=== PATIENT | female | born 1965 | race Caucasian/White ===

== ENCOUNTER 2019-08-23 09:01 | Emergency (ER) | payer SELFPAY ==
[2019-08-23 09:02] VITALS: BP 161/95; PULSE 150; RESP 20; TEMP 36.6; O2SAT 98; BMI 32.3
[2019-08-23 09:12] VITALS: PULSE 145
--- NOTE | 2019-08-23 09:16 | RAD_ITS ---
STUDY: X-RAY CHEST REASON FOR EXAM: Female, 54 years old. COUGH, SHORTNESS OF BREATH, FEVER X3 DAYS. TECHNIQUE: PA and lateral views of the chest. COMPARISON: None. FINDINGS: Cardiac silhouette unremarkable. Increased bronchovascular markings. Aorta unremarkable. No focal patchy airspace opacities. No pleural effusions. Suspected tiny granulomas versus prominent vessel on end. Upper abdomen unremarkable. Osseous structures intact. No pneumothorax. RAD/Chest PA and Lateral IMPRESSION: No focal patchy airspace opacities or effusions Mild reactive airway disease/viral infection Suspected tiny granulomas versus prominent vessel on end (Todd prior imaging or 6 month follow up x-ray) Electronically Signed: Petr Lantigua DO at 10:01 EST Tel , Service support ,
--- NOTE | 2019-08-23 09:19 | ED.VISSUMM ---
- ER Visit Summary Date of Service: 08/23/19 Chief Complaint: Fever History of Present Illness: The patient is a 54 F recently moved area has no primary care physician. Past medical history of urinary incontinence for which she is out of her medications. Patient states her last 5 days she has had a subjective fever. She does not have a thermometer. She is had a nonproductive cough. She denies any abdominal pain. No vomiting. No diarrhea. No dysuria. Physical Examination: Well-appearing middle-aged female. Vital signs are stable. She does have a low-grade temperature of 100 mom in the room the nurse retook it. H EENT exam unremarkable. Moist with membranes. TMs normal. She does not appear to be septic or toxic. No signs of dehydration. Neck nontender. No lymphadenopathy. No meningismus. Lungs clear to auscultation bilaterally. Heart tachycardic no murmur. Abdomen is soft and nontender. Normal bowel sounds. No peritoneal signs. Extremities moves all 4. No edema. Nontender. No rashes or cellulitis. Back nontender. Neurologically she is awake and alert with no focal motor deficits. Test Results: Chest x-ray AP lateral 2 views shows acute abnormality read both myself and the radiologist. Urinalysis shows positive nitrates greater than 100 white cells and 4+ bacteria consistent with a UTI. A urine culture was ordered. Emergency Department Course and Treatment: Patient's exam is pretty benign. She will be worked up for possible fever with a chest x-ray and urinalysis. Repeat exam doing well at 11:25 AM. Discussed with patient test results. She was started on Keflex in the emergency department. Treatment Plan: Keflex 500 4 times daily for 7 days. Fluids and rest. Alternate Tylenol and Motrin. She was given a dose of Tylenol in the ER. She has no primary care physician should be referred to [facility]. Disposition: Discharge Impression: Fever secondary to an acute UTI This note was generated with [employer] dictation software. It may contain incorrect words, spelling, and punctuation that were not noted in review of the chart prior to signing
[2019-08-23 09:20] VITALS: PULSE 144; TEMP 38.3
[2019-08-23] MEDS: Acetaminophen 500 MG Tablet 1000 MG PO (10:01)
[2019-08-23 10:20] LABS: Mucous, Urine 0 SEEN /hpf (<or=2+)
[2019-08-23 10:23] LABS: Color, Urine Yellow (Yellow); Glucose, Dipstick Normal (Normal); Ketone-Dipstick 5 mg/dl (Negative); Leukocyte Esterase-Dipstick 500 /ul (Negative); Nitrite-Dipstick Positive (Negative); Occult Blood-Urine 250 /ul (Negative); Protein-Dipstick 500 mg/dl (Negative); Specific Gravity, Urine 1.015 (1.002-1.030); Urine Bilirubin Dipstick 1 mg/dL (Negative); Urine Clarity Cloudy (Clear); Urine Urobilinogen 1 mg/dl (Normal); Urine pH 6.5 (5.0 - 8.0)
[2019-08-23 10:29] LABS: Red Blood Cells-Urine 5-10 SEEN /hpf (0-5); Squamous Epithelial Cells - UA 0-5 SEEN /hpf (5-10)
[2019-08-23 10:30] LABS: Bacteria 4+ /hpf (None Seen)
[2019-08-23 10:31] LABS: White Blood Cells >100 SEEN /hpf (0-5)
[2019-08-23] MEDS: Cephalexin 250 MG Capsule 500 MG PO (11:31)
[2019-08-23 11:34] VITALS: TEMP 37.2
--- NOTE | 2019-08-23 11:41 | ED.DEP ---
ED Disposition - Plan for ED Patient: Disposition: Home or Assisted Living Instructions: Urinary Tract Infections in Women Prescriptions: Cephalexin [Keflex] 500 mg PO Q6 #30 cap Prescription Printed Referrals: Robert Ricks MD [STAFF PHYSICIAN] - 3-5 Days Additional Instructions: Have a urinary tract infection. Plenty of fluids and rest. Alternate Tylenol Motrin for fever. Keflex 1 pill 4 times a day for 1 week. Follow-up if not improving or return if feeling worse.
== END 2019-08-23 11:58 | disposition home or self-care (01) ==
PROVIDERS: Emergency Provider Emergency Medicine
DX: N39.0 Urinary tract infection, site not specified (principal); R05 Cough; Z87.891 Personal history of nicotine dependence
CPT/HCPCS: 71046; 81001; 87077; 87086; 87088; 87186; 99283

== ENCOUNTER → 2023-01-29 | Outpatient (CLI) | payer OTHER, SELFPAY ==
--- NOTE | 2023-01-29 12:49 | BI_ITS ---
MAMMOGRAPHY - BILATERAL SCREENING REASON FOR EXAM: Female, 57 years old. Routine annual screening examination. PERTINENT HISTORY: Non-contributory. TECHNIQUE: Digital bilateral breast ervin (3D mammographic acquisition) in the CC and MLO projections. 2-D mediolateral oblique (MLO) and craniocaudad (CC) views of both breasts were obtained. CAD: Full Field Digital Mammography with Computer Added Detection was performed. COMPARISON: None. Baseline examination. FINDINGS: Breast Composition: There are scattered areas of fibroglandular density. There are no dominant masses or suspicious calcifications. Small benign-appearing bilateral axillary lymph nodes. There is a 4 mm well-defined nodule with a central fatty notch in the slightly upper lateral aspect of the right breast suggestive of an intramammary lymph node No other significant abnormalities are identified. BI/SCRN MAMM (CAD)W/ERVIN BILAT IMPRESSION: Negative screening mammogram. Yearly followup mammogram recommended. (A) ASSESSMENT CATEGORY: BIRADS Category 2: Benign. A letter regarding these results will be sent to the patient by the facility within 30 days. Approximately 10% of breast cancers are not detected by mammography. A normal mammogram should not delay biopsy of a clinically suspicious abnormality. [id number] Electronically Signed: Shun Hunt MD at 14:12 EDT ,
== END | disposition home or self-care (01) ==
LOC: OPBI 12:47
PROVIDERS: PCP Family Medicine; Referring Provider Family Medicine; Visit Provider Family Medicine
DX: Z12.31 Encounter for screening mammogram for malignant neoplasm of breast (principal)
CPT/HCPCS: 77063; 77067

== ENCOUNTER → 2023-02-04 | Outpatient (CLI) | payer OTHER, SELFPAY ==
--- NOTE | 2023-02-04 18:18 | CT_ITS ---
ACR Level 3 findings have been noted. An addendum which confirms receipt of the report will follow. STUDY: LOW DOSE CT LUNG CANCER SCREENING REASON FOR EXAM: Female, 57 years old. history of tobacco use. One pack per day x40 years RADIATION DOSAGE (If Supplied By Facility): CTDIvol = ( 3.02 ) mGy, DLP = ( 105.71 ) mGycm TECHNIQUE: No contrast was administered. Low dose technique was utilized (average mAS-38 and kVp 120). 1.25 mm axial source images with a slice interval of 1.25-mm were reconstructed in lung windows with coronal and sagittal reformats COMPARISON: Chest radiograph August 23, 2019. NODULES: No suspicious pulmonary nodules. Endobronchial lesion: Abrupt occlusion of the left lower lobe bronchus axial image 118 with complete atelectasis of the left lower lobe. Numerous embedded calcified granulomas in the collapsed left lower lobe. Parenchyma: Superior segment right lower lobe 1.2 cm calcified granuloma. Minimal bilateral peripheral scarring. Additional scattered punctate calcified granulomas throughout the remainder of the lungs. No other consolidation. No effusion. No pneumothorax. Aorta: Mild abdominal aortic atherosclerosis. No aortic ectasia CORONARY ARTERIES: mild circumflex and right coronary calcified atherosclerosis. Heart: No cardiomegaly or pericardial effusion. Pulmonary artery: No main pulmonary arterial enlargement. Mediastinal nodes: No mediastinal or bulky hilar adenopathy. Other chest and abdominal findings: Unremarkable thyroid. Unremarkable esophagus. Normal adrenals. No acute upper abdominal finding. CT/Low Dose CT Lung Screening IMPRESSION: Abrupt occlusion of the left lower lobe bronchus with complete left lower lobe atelectasis. This is of unknown chronicity and without evidence of surrounding bulky mass or other endobronchial lesion. Finding could represent aspiration. Underlying neoplastic process is not excluded. Pulmonary referrals recommended for consideration of bronchoscopy. Scattered diffuse calcified granulomas compatible with prior granulomatous disease. No suspicious pulmonary nodules in the aerated lung. Left lower lobe cannot be evaluated due to complete collapse. Lung-RADS category 0 - Additional lung cancer screening CT images and/or comparison to prior chest CT examination is needed. RECOMMENDATION: 1. Pulmonary referral consideration of bronchoscopy as above. 2. Repeat CT chest after resolution of atelectasis to complete evaluation of the left lower lobe. IMPORTANT NOTES FOR USE: ACR Lung-RADS Version 1.1 Assessment Categories Release Date: 2018 Category: Coded 0-4 bases on nodule(s) with highest degree of suspicion. Negative screen is defined as categories 1 and 2; a positive screen is defined as categories 3 and 4. Category 3 and 4A nodules that are unchanged on interval CT should be coded as category 2, and individuals returned to screening in 12 months. Category 4X: Category 3 or 4 nodules with additional imaging findings that increase the suspicion of lung cancer, such as spiculation, GGN that doubles in size in 1 year, enlarged lymph notes, etc. Category Modifiers: S (significant finding unrelated to lung cancer) Electronically Signed: Juan Alberto Cartagena MD at 9:28 EDT ,
== END | disposition home or self-care (01) ==
LOC: CT 17:18
PROVIDERS: PCP Family Medicine; Referring Provider Family Medicine; Visit Provider Family Medicine
DX: Z87.891 Personal history of nicotine dependence (principal)
CPT/HCPCS: 71271

== ENCOUNTER → 2023-03-03 | Outpatient (CLI) | payer OTHER, SELFPAY ==
--- NOTE | 2023-03-03 16:10 | RAD_ITS ---
INDICATION: Atelectasis EXAMINATION/TECHNIQUE: X-RAY - XR Chest 2 Views COMPARISON: FINDINGS: LINES/DEVICES: None. LUNGS: No consolidation, edema or effusion. No pneumothorax. MEDIASTINUM AND CARDIOVASCULAR STRUCTURES: Cardiac silhouette not enlarged. Central airways and mediastinal contour are unremarkable. BONES AND SOFT TISSUES: Old healed right fourth and fifth rib fractures. RAD/Chest PA and Lateral IMPRESSION: Old healed right fourth and fifth rib fractures. Electronically Signed: Kvng Howell MD at 23:29 EDT ,
== END | disposition home or self-care (01) ==
LOC: MTRAD 16:08
PROVIDERS: PCP Family Medicine; Referring Provider Internal Medicine Pulmonary Disease; Visit Provider Internal Medicine Pulmonary Disease
DX: J98.11 Atelectasis (principal)
CPT/HCPCS: 71046

== ENCOUNTER → 2023-06-17 | Outpatient (CLI) | payer OTHER, SELFPAY | END | disposition home or self-care (01) | PROVIDERS: PCP Family Medicine; Referring Provider Family Medicine; Visit Provider Family Medicine | DX: N39.0 Urinary tract infection, site not specified (principal) | CPT/HCPCS: 87077; 87086; 87088; 87186 ==

== ENCOUNTER → 2023-07-16 | Outpatient (CLI) | payer SELFPAY ==
[2023-07-16 09:27] LABS: Mucous, Urine 0 SEEN /hpf (<or=2+)
[2023-07-16 12:18] LABS: Color, Urine Yellow (Yellow); Glucose, Dipstick Normal (Normal); Ketone-Dipstick 5 mg/dl (Negative); Leukocyte Esterase-Dipstick 500 /ul (Negative); Nitrite-Dipstick Positive (Negative); Occult Blood-Urine 150 /ul (Negative); Protein-Dipstick 100 mg/dl (Negative); Urine Bilirubin Dipstick 1 mg/dL (Negative); Urine Clarity Cloudy (Clear); Urine Urobilinogen 1 mg/dl (Normal)
[2023-07-16 12:19] LABS: Absolute Lymphocyte Count 2.07 X10^3/uL (0.83-4.51); Absolute Neutrophil Count 5.9 X10^3/uL (2.0-7.7); Basophil# 0.08 X10^3/uL; Basophil% 0.9 % (0-1); Eosinophil# 0.18 X10^3/uL; Hemoglobin 15.9 g/dL (12.0-15.0); Lymphocyte # 2.07 X10^3/ul (0.83-4.51); Lymphocyte % 23.3 % (19-41); Mean Corp Hgb Conc 31.8 g/dL (32-36); Mean Corpuscular Hgb 31.5 pg (27.0-32.0); Mean Platelet Vol. 11.3 fl (6.2-12.0); Monocyte# 0.68 X10^3/uL; Monocyte% 7.6 % (0-10); NRBC Flagged by Analyzer 0 % (0-5); Neutrophil # 5.85 X10^3/uL (2.7-7.7); Neutrophil % 65.9 % (47-70); Platelet Count 387 K/mm3 (150-450); RBC Distribution Width CV 13.9 % (11.6-14.6); RBC Distribution Width SD 50.5 fl (35.1-43.9); Red Blood Count 5.05 M/mm3 (4.2-5.4); White Blood Count 8.9 K/mm3 (4.4-11.0)
[2023-07-16 12:31] LABS: Bacteria 3+ /hpf (None Seen); Red Blood Cells-Urine 10-25 SEEN /hpf (0-5); Squamous Epithelial Cells - UA 0-5 SEEN /hpf (5-10); White Blood Cells 25-50 SEEN /hpf (0-5)
[2023-07-16 12:45] LABS: Cholesterol 220 mg/dL (200); High Density Lipoprotein 100 mg/dL; Magnesium 2.2 mg/dL (1.6-2.6); Thyroid Stim Hormone (TSH) 1.97 uIU/mL (0.358-3.74); Triglycerides 84 mg/dL; Very Low Density Lipoprotein 17 mg/dL (5-40)
== END | disposition home or self-care (01) ==
LOC: MFPLAB 09:26
PROVIDERS: PCP Family Medicine; Visit Provider Family Medicine
DX: R03.0 Elevated blood-pressure reading, without diagnosis of hypertension (principal); R00.0 Tachycardia, unspecified
CPT/HCPCS: 36415; 80061; 81001; 83735; 84443; 85025

== ENCOUNTER → 2024-02-09 | Outpatient (CLI) | payer SELFPAY | END | disposition home or self-care (01) | PROVIDERS: PCP Family Medicine; Visit Provider Family Medicine | DX: Z12.4 Encounter for screening for malignant neoplasm of cervix (principal) | CPT/HCPCS: 88175; G0145 ==

== ENCOUNTER → 2024-02-25 | Outpatient (CLI) | payer OTHER, SELFPAY ==
--- NOTE | 2024-02-25 12:54 | US_ITS ---
HISTORY: Hypertrophy of uterus. TECHNIQUE: Transabdominal and transvaginal pelvic ultrasound was performed with ge scale and color Doppler evaluation. 76 images. COMPARISON: None. FINDINGS: UTERUS: 4.8 x 1.8 x 3.4 cm. Anteverted. Heterogeneous echotexture. ENDOMETRIAL THICKNESS: 2 mm, not thickened. RIGHT OVARY: 0.9 x 1.1 x 1.6 cm with a 7 mm dominant follicle. No adnexal masses. LEFT OVARY: Not well-visualized due to suboptimal bladder distention. FREE FLUID: None. URINARY BLADDER: Partially distended at 61 cc. US/Pelvic w/ Transvaginal IMPRESSION: Heterogeneous uterus, raising the possibility of leiomyoma. Electronically Signed: Ivette Hand MD at 13:15 EDT ,
== END | disposition home or self-care (01) ==
LOC: US 12:52
PROVIDERS: PCP Family Medicine; Referring Provider Family Medicine; Visit Provider Family Medicine
DX: N85.2 Hypertrophy of uterus (principal)
CPT/HCPCS: 76830; 76856

== ENCOUNTER → 2024-04-10 | Outpatient (CLI) | payer OTHER, SELFPAY ==
--- NOTE | 2024-04-10 18:37 | CT_ITS ---
STUDY: LOW DOSE CT LUNG CANCER SCREENING REASON FOR EXAM: Female, 58 years old. Smoker RADIATION DOSAGE (If Supplied By Facility): CTDIvol = ( 3.18 ) mGy, DLP = ( 109.20 ) mGycm TECHNIQUE: No contrast was administered. Low dose technique was utilized (average mAS-38 and kVp 120). 1.25 mm axial source images with a slice interval of 1.25-mm were reconstructed in lung windows. 2.5 mm axial source images with a slice interval of 2.5-mm were reconstructed in lung windows. 5.0 mm axial source images with a slice interval of 5.0-mm were reconstructed in soft tissue windows. COMPARISON: Comparison is made with prior study dated February 04, 2023. NODULES: Stable calcified granuloma in the superior segment of the right lower lobe. Emphysema: Mild emphysematous changes. Endobronchial lesion: None Aorta: Mild atherosclerotic calcification. CORONARY ARTERIES: Coronary artery calcification is seen. Heart: Unremarkable Pulmonary artery: Unremarkable Mediastinal nodes: Unremarkable Other chest and abdominal findings: The previously seen left lower lobe atelectasis is not seen at this time. CT/Low Dose CT Lung Screening IMPRESSION: IMPORTANT NOTES FOR USE: ACR Lung-RADS Version 1.1 Assessment Categories Release Date: 2018 Category: Coded 0-4 bases on nodule(s) with highest degree of suspicion. Negative screen is defined as categories 1 and 2; a positive screen is defined as categories 3 and 4. Category 3 and 4A nodules that are unchanged on interval CT should be coded as category 2, and individuals returned to screening in 12 months. Category 4X: Category 3 or 4 nodules with additional imaging findings that increase the suspicion of lung cancer, such as spiculation, GGN that doubles in size in 1 year, enlarged lymph notes, etc. Category Modifiers: S (significant finding unrelated to lung cancer) Electronically Signed: Shun Hunt MD at 15:27 EDT ,
== END | disposition home or self-care (01) ==
PROVIDERS: PCP Family Medicine; Referring Provider Family Medicine; Visit Provider Family Medicine
DX: Z12.2 Encounter for screening for malignant neoplasm of respiratory organs (principal); F17.201 Nicotine dependence, unspecified, in remission
CPT/HCPCS: 71271

== ENCOUNTER → 2024-12-20 | Outpatient (CLI) | payer OTHER, SELFPAY ==
--- NOTE | 2024-12-20 16:53 | RAD_ITS ---
PROCEDURE: LUMBAR SPINE 2 OR 3 VIEWS 12/20/2024 REASON FOR EXAM: FACET ARTHROPATHY TECHNIQUE: Standing three-view lumbar spine series was performed. FINDINGS: There are no compression fractures. There is maintenance of the normal lumbar lordosis. There is mild rotary scoliosis of the lumbar spine convex right centered at the L2-3 level. There is degenerative disc disease L3-4 and L4-5 with narrowing of the disc spaces. There is multilevel facet arthropathy. There is no spondylolisthesis. The SI joints are normal. There is calcific vascular disease of the abdominal aorta. RAD/Lumbar Spine 2 or 3 Views IMPRESSION: Mild multilevel degenerative disc disease and rotary scoliosis convex right. Reading Location: [id number]
[2024-12-20 18:02] LABS: Absolute Neutrophil Count 4.1 X10^3/uL (2.0-7.7); Basophil# 0.08 X10^3/uL; Eosinophil# 0.34 X10^3/uL; Eosinophils% 4.5 % (0-5); Hematocrit 42.6 % (37-47); Hemoglobin 13.8 g/dL (12.0-15.0); Lymphocyte % 32.7 % (19-41); Mean Corp Hgb Conc 32.4 g/dL (32-36); Mean Corpuscular Hgb 31.7 pg (27.0-32.0); Mean Corpuscular Volume 97.9 fL (81-99); Mean Platelet Vol. 11.1 fl (6.2-12.0); Monocyte# 0.65 X10^3/uL; Monocyte% 8.5 % (0-10); NRBC Flagged by Analyzer 0 % (0-5); Neutrophil # 4.06 X10^3/uL (2.7-7.7); Neutrophil % 53.2 % (47-70); Platelet Count 391 K/mm3 (150-450); RBC Distribution Width CV 13.7 % (11.6-14.6); Red Blood Count 4.35 M/mm3 (4.2-5.4); White Blood Count 7.6 K/mm3 (4.4-11.0)
[2024-12-20 18:10] LABS: Color, Urine Yellow (Yellow); Glucose, Dipstick Normal (Normal); Ketone-Dipstick Negative (Negative); Leukocyte Esterase-Dipstick 25 /ul (Negative); Nitrite-Dipstick Negative (Negative); Occult Blood-Urine 10 /ul (Negative); Protein-Dipstick 15 mg/dl (Negative); Specific Gravity, Urine 1.025 (1.002-1.030); Urine Bilirubin Dipstick Negative (Negative); Urine Clarity Clear (Clear); Urine Urobilinogen Normal (Normal)
[2024-12-20 18:31] LABS: ALB/GLOB Ratio 1.2 RATIO (0.9-2.4); AST(SGOT) 17 U/L (<=31); Alanine Aminotransfer ALT/SGPT 16 U/L (<=34); Albumin, Serum 3.8 g/dL (3.5-5.0); Alkaline Phosphatase 74 U/L (35-104); Anion Gap 12 (5-15); BUN 22 mg/dL (4-19); BUN/Creat Ratio 20.8 RATIO (10-20); Calcium,Total 9.5 mg/dL (7.6-11.0); Carbon Dioxide 26.3 mmol/L (21.0-32.0); Chloride 103 mmol/L (98-108); Cholesterol 200 mg/dL (<=200); Creatinine, Serum 1.07 mg/dL (0.70-1.20); EST Glomerular Filtration Rate 60 (>60); Globulin 3.1 g/dL (2.2-4.2); Glucose 100 mg/dL (70-99); High Density Lipoprotein 92 mg/dL; Low Density Lipoprotein Calc. 86 mg/dL; Potassium 3.9 mmol/L (3.3-5.1); Protein, Total 6.9 g/dL (5.9-8.4); Sodium Level 141 mmol/L (133-145); Total Bilirubin 0.22 mg/dL (0.00-1.30); Triglycerides 112 mg/dL; Very Low Density Lipoprotein 22 mg/dL (5-40); cholesterol:hdl ratio screen 2.17
--- OUTSIDE RECORDS SUMMARY | 2024-12-20 22:07 | XMS RPT_ITS | CCD ---
Author Organization [facility] Care Team Providers Care Necktie Centralizing Machine Operator Name Role Phone Himanshu Schmitzwn [facility] Physicians Primary Care Pro vider MICHAEL PALOMINO Attending Unavailable JOSSIE BRAR Referring Unavailable MICHAEL PALOMINO Attending Unavailable MICHAEL PALOMINO Admitting Unavailable MICHAEL PALOMINO Attending Unavailable Ted Gore Referring Unavailable Ted Gore Primary Care Unavailable Ted Gore Attending Unavailable Ted Gore Primary Care Unavailable Ted Gore Attending Unavailable Ted Gore Referring Unavailable Ted Gore Referring Unavailable Ted Gore Primary Care Unavailable Ted Gore Attending Unavailable Ted Gore Primary Care Unavailable Ted Gore Attending Unavailable Ted Gore Primary Care Unavailable Ted Gore Attending Unavailable Allergies Allergy Classification Reported Allergen(s) Allergy Type Date of Onset Reaction(s) Facility (5 sources) bee venom protein (honey bee) Allergy to substance 08-23-2019 [facility] (1 source) bee venom protein (honey bee) Drug allergy (disorder) 08-23-2019 [facility] Repository Medications Current Medications Medication Drug Class(es) Dates Sig (Normalized) Sig (Original) acetaminophen 325 mg / oxyCODONE hydrochloride 5 mg oral tablet (1 source) Opioid Agonist Start: 04-19-2023 End: 04-26-2023 take 1 tablet by mouth every six hours as needed for pain oxyCODONE-acetamin ophen (Percocet) 5-325 MG tablet Indications: Postoperative pain Take 1 tablet by mouth every 6 hours as needed for severe pain (7-10) for up to 7 days. 28 tablet 0 04/19/2023 04/26/2023 Active cephalexin 500 mg oral capsule (4 sources) Cephalosporin Antibacterial Start: 08-23-2019 take 500 mg by mouth every six hours Cephalexin Active 500 MG PO EVERY 6 HOURS August 23, 2019 12:00am docusate sodium 100 mg oral capsule (1 source) Start: 04-19-2023 End: 04-26-2023 take 1 capsule by mouth twice daily as needed for constipation docusate sodium (Colace) 100 MG capsule Take 1 capsule (100 mg) by mouth 2 times daily as needed for constipation for up to 7 days. 14 capsule 0 04/19/2023 04/26/2023 Active 60 actuat fluticasone propionate 0.232 mg/actuat / salmeterol xinafoate 0.014 mg/actuat dry powder inhaler (4 sources) Corticosteroid, beta2-Adrenergic Agonist Start: 04-01-2023 fluticasone-salmet clinton (AirDuo RespiClick) 232-14 MCG/ACT inhaler ibuprofen 600 mg oral tablet (5 sources) Nonsteroidal Anti-inflammatory Drug Start: 04-19-2023 End: 04-26-2023 take 1 tablet by mouth every six hours as needed for pain and pain ibuprofen 600 MG tablet Take 1 tablet (600 mg) by mouth every 6 hours as needed for mild pain (1-3) or moderate pain (4-6) for up to 7 days. 28 tablet 0 04/19/2023 04/26/2023 Active Start: 03-29-2023 ibuprofen 800 MG tablet 24 hr oxybutynin chloride 15 mg extended release oral tablet (4 sources) Cholinergic Muscarinic Antagonist Start: 11-25-2022 take 1 tablet by mouth once daily oxybutynin XL (Ditropan-XL) 15 MG 24 hr tablet Take 15 mg by mouth daily. 0 11/25/2022 Active sulfamethoxazole 800 mg / trimethoprim 160 mg oral tablet (1 source) Dihydrofolate Reductase Inhibitor Antibacterial, Sulfonamide Antimicrobial Start: 04-19-2023 End: 04-22-2023 take 1 tablet by mouth twice daily sulfamethoxazole-t rimethoprim (Bactrim DS) 800-160 MG tablet Indications: Cystitis Take 1 tablet by mouth 2 times daily for 3 days. 6 tablet 0 04/19/2023 04/22/2023 Active traMADol hydrochloride 50 mg oral tablet (4 sources) Opioid Agonist Start: 03-31-2023 traMADol (Ultram) 50 MG tablet varenicline 1 mg oral tablet (4 sources) Partial Cholinergic Nicotinic Agonist Start: 04-04-2023 take 1 tablet by mouth twice daily varenicline (Chantix) 1 MG tablet TAKE 1 TABLET BY MOUTH TWICE DAILY starting after completing dose .5mg pack 0 04/04/2023 Active Completed/Discontinued Medications Medication Drug Class(es) Dates Sig (Normalized) Sig (Original) acetaminophen 500 mg oral tablet (1 source) Start: 04-19-2023 End: 04-19-2023 acetaminophen (Tylenol) tablet 1,000 mg ALPRAZolam 0.25 mg disintegrating oral tablet (1 source) Benzodiazepine Start: 04-19-2023 End: 04-19-2023 ALPRAZolam (Xanax) disintegrating tablet 0.25 mg calcium chloride 0.0014 meq/ml / potassium chloride 0.004 meq/ml / sodium chloride 0.103 meq/ml / sodium lactate 0.028 meq/ml injectable solution (1 source) Start: 04-19-2023 End: 04-19-2023 lactated Ringer's infusion famotidine 20 mg oral tablet (1 source) Histamine-2 Receptor Antagonist Start: 04-19-2023 End: 04-19-2023 famotidine (Pepcid) tablet 20 mg gabapentin 100 mg oral capsule (1 source) Anti-epileptic Agent Start: 04-19-2023 End: 04-19-2023 gabapentin (Neurontin) capsule 100 mg 5 ml sodium chloride 9 mg/ml injection (3 sources) Start: 04-19-2023 End: 04-19-2023 sodium chloride 0.9% (NS) flush 10 mL Problems Active Problems Problem Classification Problem Date Documented Date Episodic/Chronic Genitourinary symptoms and ill-defined conditions (7 sources) Genuine stress incontinence; Translations: [Stress incontinence (female) (male)] Onset: 04-15-2023 04-15-2023 Chronic Other aftercare (1 source) Surgical follow-up; Translations: [Encounter for follow-up examination after completed treatment for conditions other than malignant neoplasm] 06-01-2023 Episodic Other diseases of bladder and urethra (2 sources) Overactive bladder; Translations: [Overactive bladder] Onset: 04-15-2023 04-15-2023 Chronic Other diseases of bladder and urethra (1 source) Overactive bladder; Translations: [Overactive bladder] Onset: 04-15-2023 Chronic Other female genital disorders (1 source) Hypertrophy of uterus; Translations: [Hypertrophy of uterus] Onset: 03-23-2024 Episodic Other nervous system disorders (1 source) Postoperative pain ; Translations: [Other acute postprocedural pain] 04-19-2023 Episodic Other screening for suspected conditions (not mental disorders or infectious disease) (2 sources) Encounter for screening for malignant neoplasm of respiratory organs; Translations: [Encounter for screening for malignant neoplasm of cervix] Onset: 04-14-2024 Episodic Prolapse of female genital organs (3 sources) Midline cystocele; Translations: [Cystocele, midline] Onset: 04-15-2023 04-15-2023 Chronic Past or Other Problems Problem Classification Problem Date Documented Date Episodic/Chronic Other aftercare (2 sources) Encounter for follow-up examination after completed treatment for conditions other than malignant neoplasm; Translations: [Encounter for follow-up examination after completed treatment for conditions other than malignant neoplasm] Onset: 06-01-2023 Episodic Other circulatory disease (1 source) Elevated blood-pressure reading, without diagnosis of hypertension; Translations: [Elevated blood-pressure reading, without diagnosis of hypertension] Onset: 08-09-2023 Episodic Other nervous system disorders (2 sources) Other acute postprocedural pain; Translations: [Other acute postprocedural pain] Onset: 04-19-2023 Episodic Urinary tract infections (1 source) Urinary tract infection, site not specified; Translations: [Urinary tract infection, site not specified] Onset: 06-22-2023 Episodic Results Test Name Value Interpretation Reference Range Facility Low Dose CT Lung Screeningon 04-10-[address] Lung Screening [facility] [address] [place] [address] Lung Screening MR#: [id number] Acct: [id number] Name: HARIS MCCURDY Rep #: [id number] : 1965 F 58 From: Shun mcqueen MD PCP: Dr. Ted Gore MD Status: [facility] Study: Low Dose CT Lung Screening Date of Exam: 04/10 Exam# [id number] Ordering Dr: Ted Gore MD ADDENDUM by Dr. Shun Hunt MD on 04/13/24 at 0800 ADDENDUM [id number] This is an addendum report for voice recognition error. Category 3: Twelve-month follow-up recommended. Electronically Signed: Shun Hunt MD at 8:00 EDT , 04/13/24 0800 Date cc: Dr. Ted Gore MD * Signed ADDENDUM by Dr. Shun Hunt MD on 04/13/[address]/Low Dose CT Lung Screening IMPRESSION: undefined 04/13/24 0807 Date cc: Dr. Ted Gore MD * Signed [id number] STUDY: LOW DOSE CT LUNG CANCER SCREENING REASON FOR EXAM: Female, 58 years old. Smoker RADIATION DOSAGE (If Supplied By Facility): CTDIvol = ( 3.18 ) mGy, DLP = ( 109.20 ) mGycm TECHNIQUE: No contrast was administered. Low dose technique was utilized (average mAS-38 and kVp 120). 1.25 mm axial source images with a slice interval of 1.25-mm were reconstructed in lung windows. 2.5 mm axial source images with a slice interval of 2.5-mm were reconstructed in lung windows. 5.0 mm axial source images with a slice interval of 5.0-mm were reconstructed in soft tissue windows. COMPARISON: Comparison is made with prior study dated February 04, 2023. NODULES: Stable calcified granuloma in the superior segment of the right lower lobe. Emphysema: Mild emphysematous changes. Endobronchial lesion: None Aorta: Mild atherosclerotic calcification. CORONARY ARTERIES: Coronary artery calcification is seen. Heart: Unremarkable Pulmonary artery: Unremarkable Mediastinal nodes: Unremarkable Other chest and abdominal findings: The previously seen left lower lobe atelectasis is not seen at this time. CT/Low Dose CT Lung Screening IMPRESSION: IMPORTANT NOTES FOR USE: ACR Lung-RADS Version 1.1 Assessment Categories Release Date: 2018 Category: Coded 0-4 bases on nodule(s) with highest degree of suspicion. Negative screen is defined as categories 1 and 2; a positive screen is defined as categories 3 and 4. Category 3 and 4A nodules that are unchanged on interval CT should be coded as category 2, and individuals returned to screening in 12 months. Category 4X: Category 3 or 4 nodules with additional imaging findings that increase the suspicion of lung cancer, such as spiculation, GGN that doubles in size in 1 year, enlarged lymph notes, etc. Category Modifiers: S (significant finding unrelated to lung cancer) Electronically Signed: Shun Hunt MD at 15:27 EDT Reading Location ID and State: [facility] / [place] , Service support , CC: Dr. Ted Gore MD Rural Mail Contractor: Signed Normal [facility] Pelvic w/ Transvaginalon Pelvic w/ Transvaginal [facility] [address] [place], [place] [id number] Pelvic w/ Transvaginal MR#: [id number] Acct: [id number] Name: HARIS MCCURDY Rep #: [id number] : 1965 F 58 From: Ivette bragg MD PCP: Dr. Ted Gore MD Status: [facility] Study: Pelvic w/ Transvaginal Date of Exam: 02/25/24 Exam# [id number] Ordering Dr: Ted Gore MD [id number] HISTORY: Hypertrophy of uterus. TECHNIQUE: Transabdominal and transvaginal pelvic ultrasound was performed with ge scale and color Doppler evaluation. 76 images. COMPARISON: None. FINDINGS: UTERUS: 4.8 x 1.8 x 3.4 cm. Anteverted. Heterogeneous echotexture. ENDOMETRIAL THICKNESS: 2 mm, not thickened. RIGHT OVARY: 0.9 x 1.1 x 1.6 cm with a 7 mm dominant follicle. No adnexal masses. LEFT OVARY: Not well-visualized due to suboptimal bladder distention. FREE FLUID: None. URINARY BLADDER: Partially distended at 61 cc. US/Pelvic w/ Transvaginal IMPRESSION: Heterogeneous uterus, raising the possibility of leiomyoma. Electronically Signed: Ivette Hand MD at 13:15 EDT Reading Location ID and State: [facility] / [place] , Service support , CC: Dr. Ted Gore MD Rural Mail Contractor: Signed [facility] LAB TEST Normal [facility] Comment on above: Order Comment: #[id number] PAP Result Comment: TEST RESULTS LIMITS IGP Aptima HPV CtNg Age Gdln Interpretation: NEGATIVE FOR INTRAEPITHELIAL LESION AND MALIGNANCY Specimen Adequacy: Satisfactory for evaluation. Endocervical and/or squamous metaplastic cells (endocervical component) are present. Comments: The pap smear is a screening test designated to aid in the detection of pre-malignant and malignant conditions of the uterine cervix. It is not a diagnostic procedure and should not be used as the sole means of detecting cervical cancer. Both false-positive and false-negative reports do occur. Performed by Alen Agustin Hand Roller Engraver (ASCP) This nucleic acid amplification test detects fourteen high-risk HPV types (16,18,31,33,35,39,45,51,52,56,58,59,66,68) without differentiation. Age Gdln ACOG Testing 30-65 TESTING PERFORMED AT [facility]. ORIGINAL REPORT ON FILE IN LAB CONTAINS ADDITIONAL TEST SITE INFORMATION. Performed By: #### L 801.1541, L7400.0377 #### [facility] [address] [place], [place], [address] PAP IG HPV HR APTIMAon 02-10 DIAG [facility] Comment on above: Order Comment: CYTOL OGY INFORMATION: - CLINICAL INFORMATION: ANNUAL - Non - DATE LMP/MENOPAUSE: N/A - COLLECTION VIAL: Thin Prep Vial - DIGITAL COURT REPORTER SOURCE: ENDOCERVICAL - COLLECTION TECHNIQUE: BRUSH/SPATULA Result Comment: TOVA Pacheco ORDER Performed By: #### L 801.1541, [id number] #### [facility] [address] [place], [place], [address] HPV REFLEXED? Normal [facility] Comment on above: Order Comment: CYTOL OGY INFORMATION: - CLINICAL INFORMATION: ANNUAL - Non - DATE LMP/MENOPAUSE: N/A - COLLECTION VIAL: Thin Prep Vial - DIGITAL COURT REPORTER SOURCE: ENDOCERVICAL - COLLECTION TECHNIQUE: BRUSH/SPATULA Result Comment: TOVA Pacheco ORDER Performed By: #### L 801.1541, [id number] #### [facility] [address] [place], [address] 36on 09-22-2023 36 See TE sent to patient. Cancelled appointment for 10/07/2023. Requested patient call back to advise if she wants to reschedule and give new insurance information. [facility] 36on 09-21-2023 36 Sent my chart message to attempt to get ahold of patient again. Please let me know what patient says if she calls or responds to my chart message [facility] 36on 09-20-2023 36 Called provider services number on back of patients insurance card we have on file to do Botox Auth. #:[phone] Spoke with: Marilee Hunt patients insurance is not longer active and was termed/lapsed on 05/2023. I called patient, no answer. Left message stating information was told regarding insurance. Asked patient if she had gotten a new insurance since that time. Advised patient cannot do a prior auth without insurance. Advised a call back from patient with this information. Normal [facility] Absolute lymphocyte countOrd ered By: Ted Gore on 07-16-2023 Lymphocytes Auto (Unsp spec) [#/Vol] 2.07 10*3/uL 0.83-4.51 [facility] Basophil percentageOrdered B y: Ted Gore on 07-16-2023 Basophil percentage 25-50 SEEN /hpf 0-5 [facility] Basophils/100 WBC (Bld) 0.9 % 0-1 [facility] Cholesterol [Mass/Vol] 220 mg/dL <[address] [facility] Comment on above: <200 mg/dL Desirable 200-240 mg/dL Borderline >240 mg/dL High Risk Eosinophils/100 WBC (Bld) 2.0 % 0-5 [facility] Neutrophils (Bld) [#/Vol] 5.9 10*3/uL 2.0-7.7 [facility] Neutrophils/100 WBC (Bld) 65.9 % 47-70 [facility] Triglyceride [Mass/Vol] 84 mg/dL <199 [facility] Comment on above: The drugs N-Acetylcy steine and Metamizole may falsely depress this assay.Serum Triglycerides Reference Interval Normal <150 mg/dL Borderline high 150 - 199 mg/dL High 200 - 499 mg/dL Very High > or = 500 mg/dL WBC (Bld) [#/Vol] 8.9 10*3/uL 4.4-11.0 [facility] Bilirubin Test strip Ql (U)O rdered By: Ted Gore on 07-16-2023 Bilirubin Ql (U) 1 mg/dL Negative [facility] Comment on above: COLOR OF URINE MAY A FFECT DIPSTICK RESULTS. Blood erythrocytes count (nu mber/volume)Ordered By: Ted Gore on 07-16-2023 RBC (Bld) [#/Vol] 5.05 10*6/uL 4.2-5.4 [facility] Blood hemoglobin measurement (mass/volume)Ordered By: Ted Gore on 07-16-2023 Hemoglobin (Bld) [Mass/Vol] 15.9 g/dL 12.0-15.0 [facility] Blood lymphocytes/100 leukoc ytesOrdered By: Ted Gore on 07-16-2023 Lymphocytes/100 WBC (Bld) 23.3 % 19-41 [facility] Blood monocytes/100 leukocyt esOrdered By: Ted Gore on 07-16-2023 Monocytes/100 WBC (Bld) 7.6 % 0-10 [facility] Blood platelet mean volumeOr dered By: Ted Gore on 07-16-2023 Platelet mean volume (Bld) [Entitic vol] 11.3 fL 6.2-12.0 [facility] CBC W/Diff, Automatedon 06-19 Absolute Lymph 2.07 X10 3/uL Normal 0.83-4.51 [facility] Comment on above: Order Comment: Order Date: 07/16/23 Order Info: 0184-1 - CBCD Performed By: #### L 500.4100, L501.5200, L501.9520, L100.0100 #### [facility] [address] [place], [address] Absolute Neut 5.9 X10 3/uL Normal 2.0-7.7 [facility] Comment on above: Order Comment: Order Date: 07/16/23 Order Info: 0184-1 - CBCD Performed By: #### L 500.4100, L501.5200, L501.9520, L100.0100 #### [facility] [address] [place], [address] Basophils/100 WBC (Bld) 0.9 % Normal 0-1 [facility] Comment on above: Order Comment: Order Date: 07/16/23 Order Info: 0184-1 - CBCD Performed By: #### L 500.4100, L501.5200, L501.9520, L100.0100 #### [facility] [address] [place], [address] Eosinophils/100 WBC (Bld) 2.0 % Normal 0-5 [facility] Comment on above: Order Comment: Order Date: 07/16/23 Order Info: 0184-1 - CBCD Performed By: #### L 500.4100, L501.5200, L501.9520, L100.0100 #### [facility] [address] [place], [address] Erythrocyte distribution width (RBC) [Ratio] 13.9 % Normal 11.6-14.6 [facility] Comment on above: Order Comment: Order Date: 07/16/23 Order Info: 0184- - CBCD Performed By: #### L 500.4100, L501.5200, L501.9520, L100.0100 #### [facility] [address] [place], [address] Hematocrit (Bld) [Volume fraction] 50.0 % High 37-47 [facility] Comment on above: Order Comment: Order Date: 07/16/23 Order Info: 0184-1 - CBCD Performed By: #### L 500.4100, L501.5200, L501.9520, L100.0100 #### [facility] [address] [place], [address] Hemoglobin (Bld) [Mass/Vol] 15.9 g/dL High 12.0-15.0 [facility] Comment on above: Order Comment: Order Date: 07/16/23 Order Info: 0184-1 - CBCD Performed By: #### L 500.4100, L501.5200, L501.9520, L100.0100 #### [facility] [address] [place], [address] IG% 0.300 Normal 0.0-0.9 [facility] Comment on above: Order Comment: Order Date: 07/16/23 Order Info: 018- - CBCD Result Comment: IG% - Immature Granulocytes (promyelocytes, myelocytes and metamyelocytes) > 1% indicates that a LEFT SHIFT is Present. Performed By: #### L 500.4100, L501.5200, L501.9520, L100.0100 #### [facility] [address] [place], [address] Lymphocytes/100 WBC (Bld) 23.3 % Normal 19-41 [facility] Comment on above: Order Comment: Order Date: 07/16/23 Order Info: [id number] - CBCD Performed By: #### L 500.4100, L501.5200, L501.9520, L100.0100 #### [facility] [address] [place], [address] MCH (RBC) [Entitic mass] 31.5 pg Normal 27.0-32.0 [facility] Comment on above: Order Comment: Order Date: 07/16/23 Order Info: 018- - CBCD Performed By: #### L 500.4100, L501.5200, L501.9520, L100.0100 #### [facility] [address] [place], [address] MCHC (RBC) [Mass/Vol] 31.8 g/dL Low 32-36 [facility] Comment on above: Order Comment: Order Date: 07/16/23 Order Info: 018- - CBCD Performed By: #### L 500.4100, L501.5200, L501.9520, L100.0100 #### [facility] [address] [place], [address] MCV (RBC) [Entitic vol] 99.0 fL Normal 81-99 [facility] Comment on above: Order Comment: Order Date: 07/16/23 Order Info: 0184-1 - CBCD Performed By: #### L 500.4100, L501.5200, L501.9520, L100.0100 #### [facility] [address] [place], [address] Monocytes/100 WBC (Bld) 7.6 % Normal 0-10 [facility] Comment on above: Order Comment: Order Date: 07/16/23 Order Info: 0184-1 - CBCD Performed By: #### L 500.4100, L501.5200, L501.9520, L100.0100 #### [facility] [address] [place], [address] Neutrophils/100 WBC (Bld) 65.9 % Normal 47-70 [facility] Comment on above: Order Comment: Order Date: 07/16/23 Order Info: 0184-1 - CBCD Performed By: #### L 500.4100, L501.5200, L501.9520, L100.0100 #### [facility] [address] [place], [address] Nucleated RBC (Bld) [#/Vol] 0 10*3/uL Normal 0-5 [facility] Comment on above: Order Comment: Order Date: 07/16/23 Order Info: 0184-1 - CBCD Performed By: #### L 500.4100, L501.5200, L501.9520, L100.0100 #### [facility] [address] [place], [address] Platelet mean volume (Bld) [Entitic vol] 11.3 fL Normal 6.2-12.0 [facility] Comment on above: Order Comment: Order Date: 07/16/23 Order Info: 0184-1 - CBCD Performed By: #### L 500.4100, L501.5200, L501.9520, L100.0100 #### [facility] [address] [place], [address] Platelets (Bld) [#/Vol] 387 10*3/uL Normal 150-450 [facility] Comment on above: Order Comment: Order Date: 07/16/23 Order Info: 018-1 - CBCD Performed By: #### L 500.4100, L501.5200, L501.9520, L100.0100 #### [facility] [address] [place], [address] RBC (Bld) [#/Vol] 5.05 10*6/uL Normal 4.2-5.4 [facility] Comment on above: Order Comment: Order Date: 07/16/23 Order Info: 018- - CBCD Performed By: #### L 500.4100, L501.5200, L501.9520, L100.0100 #### [facility] [address] [place], [address] RDW SD 50.5 fl High 35.1-43.9 [facility] Comment on above: Order Comment: Order Date: 07/16/23 Order Info: 0184- - CBCD Performed By: #### L 500.4100, L501.5200, L501.9520, L100.0100 #### [facility] [address] [place], [address] WBC (Bld) [#/Vol] 8.9 10*3/uL Normal 4.4-11.0 [facility] Comment on above: Order Comment: Order Date: 07/16/23 Order Info: 0184- - CBCD Performed By: #### L 500.4100, L501.5200, L501.9520, L100.0100 #### [facility] [address] [place], [address] Determination of erythrocyte mean corpuscular volume (MCV)Ordered By: Ted Gore on 07-16-2023 MCV (RBC) [Entitic vol] 99.0 fL 81-99 [facility] Hematocrit Auto (Bld) [Volum e fraction]Ordered By: Ted Gore on 07-16-2023 Hematocrit (Bld) [Volume fraction] 50.0 % 37-47 [facility] Ketones Test strip Ql (U)Ord ered By: Ted Gore on 07-16-2023 Ketones Ql (U) 5 mg/dl Negative [facility] - Chemistry and C hemistry - challengeOrdered By: Ted Gore on 07-16-2023 Magnesium [Mass/Vol] 2.2 mg/dL 1.6-2.6 [facility] - Hematology and Cell countsOrdered By: Ted Gore on 07-16-2023 Erythrocyte distribution width (RBC) [Entitic vol] 50.5 fL 35.1-43.9 [facility] Erythrocyte distribution width (RBC) [Ratio] 13.9 % 11.6-14.6 [facility] Immature granulocytes/100 WBC (Bld) 0.300 % 0.0-0.9 [facility] Comment on above: IG% - Immature Granu locytes (promyelocytes, myelocytes and metamyelocytes) > 1% indicates that a LEFT SHIFT is Present. MCH (RBC) [Entitic mass] 31.5 pg 27.0-32.0 [facility] Nucleated RBC/100 WBC (Bld) [Ratio] 0 % 0-5 [facility] Lipid Profileon 07-16-2023 Cholesterol [Mass/Vol] 220 mg/dL High 200 [facility] Comment on above: Order Comment: Order Date: 07/16/23 Order Info: [id number] - LIPID Order Info: [id number] - MG Order Info: 3016-3 - TSH Result Comment: <200 mg/dL Desirable 200-240 mg/dL Borderline >240 mg/dL High Risk Performed By: #### L 500.4100, L501.5200, L501.9520, L100.0100 #### [facility] [address] [place], [address] Cholesterol in HDL [Mass/Vol] 100 mg/dL Normal [facility] Comment on above: Order Comment: Order Date: 07/16/23 Order Info: [id number] - LIPID Order Info: [id number] - MG Order Info: [id number] - TSH Result Comment: The drugs N-Acetylcysteine and Metamizole may falsely depress this assay. Reference Range HDL <40 mg/dL Low HDL Cholesterol HDL >or= 60 mg/dL High HDL Cholesterol Performed By: #### L 500.4100, L501.5200, L501.9520, L100.0100 #### [facility] [address] [place], [address] Cholesterol in LDL [Mass/Vol] 103 mg/dL Normal 0-130 [facility] Comment on above: Order Comment: Order Date: 07/16/23 Order Info: [id number] - LIPID Order Info: [id number] - MG Order Info: [id number] - TSH Performed By: #### L 500.4100, L501.5200, L501.9520, L100.0100 #### [facility] [address] [place], [address] Cholesterol in VLDL [Mass/Vol] 17 mg/dL Normal 5-40 [facility] Comment on above: Order Comment: Order Date: 07/16/23 Order Info: [id number] - LIPID Order Info: [id number] - MG Order Info: [id number] - TSH Performed By: #### L 500.4100, L501.5200, L501.9520, L100.0100 #### [facility] [address] [place], [address] Triglyceride [Mass/Vol] 84 mg/dL Normal [facility] Comment on above: Order Comment: Order Date: 07/16/23 Order Info: [id number] - LIPID Order Info: [id number] - MG Order Info: [id number] - TSH Result Comment: The drugs N-Acetylcysteine and Metamizole may falsely depress this assay. Serum Triglycerides Reference Interval Normal <150 mg/dL Borderline high 150 - 199 mg/dL High 200 - 499 mg/dL Very High > or = 500 mg/dL Performed By: #### L 500.4100, L501.5200, L501.9520, L100.0100 #### [facility] [address] [place], [address] MCHC Auto (RBC) [Mass/Vol]Or dered By: Ted Gore on 07-16-2023 MCHC (RBC) [Mass/Vol] 31.8 g/dL 32-36 [facility] Magnesiumon 07-16-2023 Magnesium [Mass/Vol] 2.2 mg/dL Normal 1.6-2.6 [facility] Comment on above: Order Comment: Order Date: 07/16/23 Order Info: [id number] - LIPID Order Info: [id number] - MG Order Info: [id number] - TSH Performed By: #### L 500.4100, L501.5200, L501.9520, L100.0100 #### [facility] [address] [place], [place], [address] Mucus LM Ql (Urine sed)Order ed By: Ted Gore on 07-16-2023 Mucus Ql (Urine sed) 0 SEEN /hpf [facility] Nitrite Test strip Ql (U)Ord ered By: Ted Gore on 07-16-2023 Nitrite Ql (U) Positive Negative [facility] No Panel InformationOrdered By: Ted Gore on 07-16-2023 Thyroid Stimulating Hormone (TSH) 1.97 uIU/mL 0.358-3.74 [facility] Platelets bldOrdered By: Ryan Gore on 07-16-2023 Platelets (Bld) [#/Vol] 387 10*3/uL 150-450 [facility] Protein Test strip Ql (U)Ord ered By: Ted Gore on 07-16-2023 Protein Ql (U) 100 mg/dl Negative [facility] Serum or plasma cholesterol in HDL measurement (mass/volume)Ordered By: Ted Gore on 07-16-2023 Cholesterol in HDL [Mass/Vol] 100 mg/dL >40 [facility] Comment on above: The drugs N-Acetylcy steine and Metamizole may falsely depress this assay. Reference Range HDL <40 mg/dL Low HDL Cholesterol HDL >or= 60 mg/dL High HDL Cholesterol Serum or plasma cholesterol in VLDL measurement (mass/volume)Ordered By: Ted Gore on 07-16-2023 Cholesterol in VLDL [Mass/Vol] 17 mg/dL 5-40 [facility] Serum or plasma low density lipoprotein (LDL) cholesterol measurement (mass/volume)Ordered By: Ted Gore on 07-16-2023 Cholesterol in LDL [Mass/Vol] 103 mg/dL 0-130 [facility] Squamous epithelial cells de tection in urine sediment by light microscopyOrdered By: Ted Gore on 07-16-2023 Epithelial cells.squamous LM Ql (Urine sed) 0-5 SEEN /hpf 5-10 [facility] Thyroid Stim Hormone (TSH)on 07-16-2023 TSH 1.97 uIU/mL Normal 0.358-3.74 [facility] Comment on above: Order Comment: Order Date: 07/16/23 Order Info: [id number] - LIPID Order Info: [id number] - MG Order Info: [id number] - TSH Performed By: #### L 500.4100, L501.5200, L501.9520, L100.0100 #### [facility] [address] [place], [place], [id number] Urinalysis, Completeon 07-16 BACTERIA 3+ /hpf Normal None Seen [facility] Comment on above: Order Comment: CLEAN CATCH Performed By: #### L 400.0001 #### [facility] [address] [place], [place], [id number] EPI,SQUAMOUS 0-5 SEEN Normal 5-10 [facility] Comment on above: Order Comment: CLEAN CATCH Performed By: #### L 400.0001 #### [facility] [address] [place], [place], [id number] RBC 10-25 SEEN Normal 0-5 [facility] Comment on above: Order Comment: CLEAN CATCH Performed By: #### L 400.0001 #### [facility] [address] [place], [place], [id number] WBC 25-50 SEEN Normal 0-5 [facility] Comment on above: Order Comment: CLEAN CATCH Performed By: #### L 400.0001 #### [facility] [address] [place], [place], [id number] Mucus Ql (Urine sed) 0 SEEN Normal [facility] Comment on above: Order Comment: CLEAN CATCH Performed By: #### L 400.0001 #### [facility] [address] [place], [place], [id number] Urine blood detectionOrdered By: Ted Gore on 07-16-2023 RBC Ql (U) 150 /ul Negative [facility] RBC Ql (U) 10-25 SEEN /hpf 0-5 [facility] Urine clarityOrdered By: Ryan Gore on 07-16-2023 Clarity (U) Cloudy Clear [facility] Urine color determinationOrd ered By: Ted Gore on 07-16-2023 Color (U) Yellow Yellow [facility] Urine glucose detectionOrder ed By: Ted Gore on 07-16-2023 Glucose Ql (U) Normal mg/dl Normal [facility] Urine leukocyte esterase det ection by dipstickOrdered By: Ted Gore on 07-16-2023 Leukocyte esterase Test strip Ql (U) 500 /ul Negative [facility] Urine pHOrdered By: Ted de jesus on 07-16-2023 pH (U) 5.0 [pH] 5.0 - 8.0 [facility] Urine sediment bacteria coun t by microscopy (number/high power field)Ordered By: Ted Gore on 07-16-2023 Bacteria LM.HPF (Urine sed) [#/Area] 3 /[HPF] None Seen [facility] Urine specific gravity measu rementOrdered By: Ted Gore on 07-16-2023 Specific gravity (U) [Rel density] 1.020 1.002-1.030 [facility] Urobilinogen Auto test strip Ql (U)Ordered By: Ted Gore on 07-16-2023 Urobilinogen Ql (U) 1 mg/dl Normal [facility] Urine Cultureon 06-19-2023 [facility] Proteus mirabilis [place] Count 11,000-25,000 Proteus mirabilis: REACTION Ampicillin Islt KAY >=32 R Ampicillin+Sulbac Islt KAY 16 I ceFAZolin Islt KAY 8 S Cefepime Islt KAY <=0.12 S cefTRIAXone Islt KAY <=0.25 S Ciprofloxacin Islt KAY <=0.25 S Ertapenem Islt KAY <=0.12 S Gentamicin Islt KAY >=16 R levoFLOXacin Islt KAY <=0.12 S Nitrofurantoin Islt KAY R Pip+Tazo Islt KAY <=4 S Tobramycin Islt KAY 8 I TMP SMX Islt KAY <=20 S Normal [facility] Comment on above: Performed By: #### M 100.2200 #### [facility] [address] [place] [address] [place], [address] Culture, urineOrdered By: Chacha Gore on 06-17-2023 Bacteria identified Cx Nom (U) Proteus mirabilis [facility] Office Visiton 06-01-2023 Follow-up visit [id number] Haris Mccurdy 1965 F Date Provider Department Center 06/01/2023 [id number] PALOMINO [facility] URO None Family History Problem Relation Age of Onset Diabetes Father Cancer Father Diabetes Mother Heart disease Mother Diabetes Mother's Sister Heart disease Mother's Sister Diabetes Mother's Brother Heart disease Mother's Brother Family Status - Relation Status Age at Father Mother Mother's Sister Mother's Brother Level of Service:12476 CT POSTOP FOLLOW UP VISIT RELATED TO ORIGINAL PX Reason for Visit and Comments: Post-op [483] - 6 week Normal [facility] Progress Noteon 06-01-2023 Progress Note 6 weeks after 1. Synthetic midurethral sling 2. Anterior repair 3. Cystoscopy with Botox intradetrusor injections (100U) Doing well, no c/o. Urinates well, denies LUKE, no OAB s/s. No vaginal bleeding/discharge. No pain Eats well, ambulates well, no N/V. PE: Suprapubic incisions healing well. No vaginal bleeding, min physiological vaginal discharge. Vaginal incisions healing well. No mesh erosion/exposure. No pain on palpation. Plan: Follow-up in 4 months for another Botox injection. Continue her home medications as prescribed. Plan discussed with the patient in detail. All questions were aswered. [facility] Progress Note Exam Chaperoned By Norma Cary MA [facility] 36on 04-20-2023 36 Spoke with patient and scheduled 6 week appointment. Letter faxed to employer. Cammy Hobson MA [facility] 36 Name of caller: Haris Mccurdy Contact phone number: [phone] Relationship to Patient: patient Provider: Dr. Palomino Practice: Urogyn Chief Complaint/Reason for Call: Pt stated that she had surgery on 04/19/2023 and needs a letter from the provider to her work so she can take the time off to recover. Pt also would like to schedule her 6 week post op appointment . Please advise. Best time of day caller can be reached: Any Patient advised that office/PCP has 24-48 business hours to return their call: Yes [facility] Nursing Noteon 04-19-2023 Nursing Note Instructions and rx given to pt and had verbalized understanding tolerated clear liquid well [facility] Nursing Note Pt on bedpan trying to urinate [facility] Nursing Note P.o. fluids clary well Normal [facility] Nursing Note Awake and talking- resp even, unlabored- O2 d/c'd [facility] Nursing Note Patient educated on importance of coughing/ deep breathing after surgery to reduce risk of pneumonia. Patient educated on importance of early mobility to reduce the risk of blood clots. Falls prevention information reviewed with patient. Post-operative pain control and ways to prevent constipation discussed with patient. [facility] Op Noteon 04-19-2023 Op Note PREOPERATIVE DIAGNOSES: 1. Stress urinary incontinence 2. Cystocele 3. Overactive bladder POSTOPERATIVE DIAGNOSES: 1. Stress urinary incontinence 2. Cystocele 3. Overactive bladder PROCEDURE: 1. Synthetic midurethral sling 2. Anterior repair 3. Cystoscopy with Botox intradetrusor injections (100U) SURGEON: Michael Palomino M.D. [employer] SURGEON: ANESTHESIA: General SPECIMENS: None DRAINS: Rosado FINDINGS: Stage II cystocele, normal cystoscopy with good sling placement. No bladder injuries. COMPLICATIONS: None STATUS AT THE END OF THE SURGERY: Stable DESCRIPTION OF PROCEDURE: After informed consent was obtained, the patient was taken back to the operating room. General anesthesia was administered. The legs were placed in the Yellofin stirrups being careful not to hyperflex nor hyperabduct her legs. She was then prepped and draped in the usual sterile fashion and the surgeons scrubbed. Examination under anesthesia revealed the above-mentioned findings. I started with the anterior repair part of the procedure. For that, the cystocele was grasped with 2 Allis clamps, 1 proximal and 1 distal to the cystocele in the middle. Then, 1% lidocaine with epinephrine was injected for hydrodissection. Then, an incision was made on the anterior vaginal wall in the midline between the 2 Allises. Then, the vaginal epithelium was dissected off the underlying tissues using blunt and sharp dissection. The bladder was then dissected laterally until all cystocele was dissected. Then, the cystocele was reduced and the pubocervical fascia was reapproximated in the midline with a few interrupted 2-0 Vicryl stitches. Then, the excess vaginal epithelium was trimmed and the incision was closed with a continuous 2-0 Vicryl stitch. Good hemostasis was noticed at the end. Attention was then turned to the sling procedure. For that, the mid urethra was grasped with two Allis clamps and injected on both sides with 1% lidocaine with epinephrine. An incision was then made approximately 2 cm over the mid urethra and the incision ended 2 cm above the previous incision for anterior repair. Then, the periurethral spaces were dissected sharply with the Metzenbaum scissors up to the level of the bony pelvis. The trocar was then inserted following through the tract that had been made in the periurethral area. This was performed on each side. After trocars insertion, cystoscopy was performed and no injuries to the bladder were observed. There was good ureteral spill of urine from both ureteral orifices. The sling was then adjusted with a #8 Hegar dilator between the tape and the urethra. The plastic was then removed and excess sling material was cut at the level of the skin. The vaginal incision was then closed with 2-0 Vicryl in a running fashion. The skin was closed with dermabond. Then, I continued with Botox intradetrusor injections. For that, a 30-degree cystoscope was introduced. The patient did have multiple trabeculations consistent with her overactive bladder. Next, 100 units of Botox were diluted with 10 mL of preservative free saline. Using an Olympus needle, the bladder was injected in 10 separate sites with 1 mL of diluted Botox. After removing the needles, all sites were hemostatic. Then, the Rosado catheter was replaced. There was good hemostasis at the end of the procedure. The patient tolerated the procedure well and she was sent to recovery room in stable condition. Normal [facility] Office Visiton 04-15-2023 Follow-up visit [id number] Haris Mccurdy 1965 F Date Provider Department Center 04/15/2023 [id number] PALOMINO [facility] URO None Family History Problem Relation Age of Onset Diabetes Father Cancer Father Diabetes Mother Heart disease Mother Diabetes Mother's Sister Heart disease Mother's Sister Diabetes Mother's Brother Heart disease Mother's Brother Family Status - Relation Status Age at Father Mother Mother's Sister Mother's Brother Level of Service:18455 CT OFFICE/OUTPATIENT NEW MODERATE MDM 45-59 MINUTES (25) Reason for Visit and Comments: New Patient [542] Urine Leakage [403] Normal [facility] Progress Noteon 04-15-2023 Progress Note HPI Chief Complaint Patient presents with New Patient Urine Leakage 58 y.o. female Urinary complaints started few years ago. Getting worse now. Tried meds before (oxybutynin) with no improvement. Also tried Kegel's with no results. Also feel as if something is falling out of the vagina; ball/bulge in thevagina. Getting worse during afternoon/evening. Pt does not manipulate to void or have BM. Stress incontinence: yes. Severe. It bothers her a lot and significantly impacts her quality of life. Urgency: yes, sometimes Urge incontinence: yes, sometimes Frequency: yes, urinates every 4-5 x during the day Nocturia: yes, 4 and 5 x per night Enuresis: No Pad use: yes, many Feels like she empties her bladder well. No recurrent UTI. No macroscopic hematuria. Sexual Activity: No; Dyspareunia: N/A Constipation: No Other bowel problems: None. Past Surgical History: Procedure Laterality Date SURGICAL IMPLANT (HISTORICAL) bith 2 History reviewed. No pertinent past medical history. Current Outpatient Medications Medication Sig Dispense Refill fluticasone-salmeter ol (AirDuo RespiClick) 232-14 MCG/ACT inhaler ibuprofen 800 MG tablet oxybutynin XL (Ditropan-XL) 15 MG 24 hr tablet Take 15 mg by mouth daily. traMADol (Ultram) 50 MG tablet varenicline (Chantix) 1 MG tablet TAKE 1 TABLET BY MOUTH TWICE DAILY starting after completing dose .5mg pack No current facility-administere d medications for this visit. OB History 2 Para Term AB 2 Living SAB IAB Ectopic Multiple Live Births 2 No Known Allergies Ht 5' 6 (1.676 m) Wt 214 lb (97.1 kg) LMP (LMP Unknown) No BMI 34.54 kg/m? Physical Exam Vulva: atrophic Vagina: atrophic Cervix: atrophic Aa -1, Ba -1, C -6 gh 4, pb 3, tvl9 Ap -1, Bp -1, D 6 Levators: 2/5 Urethra: Hypermobility: Yes Incontinence: Supine: yes, severe Bimanual: uterus AV, mobile, nontender, not enlarged, no adnexal masses felt Rectal: good tone Residual volume, bladder us: ml Assessment: Diagnosis Plan 1. Stress incontinence (female) (male) Ambulatory referral to Urogynecology 2. Overactive bladder 3. Midline cystocele I spent a total time of 45 minutes caring for this patient today. The patient was seen and examined. . I have also spent time communicating results to the patient, counseling/educating the patient, documenting in the medical record and ordering the necessary procedures. I discussed the diagnosis and importance of compliance with the treatment plan. Stress urinary incontinence. Different treatment options were discussed with the patient in detail. Patient was taught Kegels exercises. Referral to pelvic floor therapy for biofeedback/electros timulation was offered, but patient declined. Also, pessary and surgical treatment were discussed. She declined pessary fitting and wanted to proceed with surgery . A suburethral sling is recommended. I discussed the use of natural and synthetic material for her sling. I also discussed harvesting the patient's own tissue. The patient would prefer a synthetic material. The risk of mesh erosion was explained in detail. The patient is a candidate for a suburethral sling using synthetic material, and cystoscopy. The patient understands the purpose of the surgery. She understands the risks, which include but are not limited to pain (acute postoperative and/for chronic), bleeding, infection, injury to adjacent organs (including the bladder, bowel, urethra, ureters, blood vessels and nerves), dyspareunia, and fistula formation. She is aware of the possibility of additional surgery and/or re-operation to address any complications. She is aware of the risks of anesthesia, blood clots, and possible need for transfusion of blood products. She is aware of the possibility of urinary retention and the need for catheterization post-operatively. She understands that no operation can provide a 100% guarantee, and that recurrence of her stress incontinence is possible in the future. She understands that this operation is designed to treat stress incontinence specifically, and does not address detrusor instability, urge incontinence or other symptoms of overactive bladder. The patient was made aware of conservative options for treatment and has either tried or declined them. The patient demonstrated her understanding of the above and asked appropriate questions. All her questions were answered and informed consent was obtained. Also, pt with stage 2 anterior vaginal prolapse. Observation and different treatment options were discussed with the pt in detail. Pt would like to proceed with the surgical treatment at the same time with surgery for LUKE. She is a candidate for anterior repair. She understands the risks, which include but are not limited to pain (acute postoperative and/for chronic), bleeding, infection, injury to matteo (more content not included)... Normal [facility] Urinalysis macro (dipstick) panel (U)on 04-15-2023 Bilirubin, UA Negative [facility] Blood, UA Trace-Intact [facility] Glucose, UA Negative [facility] Interpretation and review of laboratory results Abnormal [facility] Ketones, UA Negative [facility] Leukocytes, UA Negative [facility] th Nitrite, UA Negative [facility] pH, UA 5.0 [facility] Protein, UA Positive [facility] Spec Grav, UA 1.025 [facility] Urob[facility], UA 0.2 [facility] Vital Signs Date Time Vital Sign Value Performing Clinician Faci lity 06-01-2023 09:31-0500 Body height 165.1 cm Michael Palomino MD Work Phone: [facility] [employer] 06-01-2023 09:31-0500 Body mass index (BMI) [Ratio] 35.35 kg/m2 Michael Palomnio MD Work Phone: [facility] [employer] 06-01-2023 09:31-0500 Body weight 96.34 kg Michael Palomino MD Work Phone: [facility] [employer] 06-01-2023 09:31-0500 Heart rate 93 /min Michael Palomino MD Work Phone: [facility] [employer] 04-19-2023 16:32-0400 Body temperature 97.7 [degF] Michael Palomino MD Work Phone: [facility] [employer] 04-19-2023 16:32-0400 Diastolic blood pressure 84 mm[Hg] Michael Palomino MD Work Phone: [facility] [employer] 04-19-2023 16:32-0400 Heart rate 76 /min Michael Palomino MD Work Phone: [facility] [employer] 04-19-2023 16:32-0400 Respiratory rate 16 /min Michael Palomino MD Work Phone: [facility] [employer] 04-19-2023 16:32-0400 SaO2% (BldA) [Mass fraction] 99 % Michael Palomino MD Work Phone: [facility] [employer] 04-19-2023 16:32-0400 Systolic blood pressure 141 mm[Hg] Michael Rodriguez Work Phone: [facility] [employer] 04-19-2023 11:53-0400 Body height 167.6 cm Michael Palomino MD Work Phone: [facility] [employer] 04-19-2023 11:53-0400 Body mass index (BMI) [Ratio] 32.93 kg/m2 Michael Palomino MD Work Phone: [facility] [employer] 04-19-2023 11:53-0400 Body weight 92.53 kg Michael Palomino MD Work Phone: [facility] 04-15-2023 13:-040 Body height 167.6 cm Michael Palomino MD Work Phone: [facility] [employer] 04-15-2023 13:27-0400 Body mass index (BMI) [Ratio] 34.54 kg/m2 Michael Palomino MD Work Phone: [facility] 04-15-2023 13:040 Body weight 97.07 kg Michael Palomino MD Work Phone: [facility] Encounters Encounter Date Encounter Type Care Provider Facility Start: 04-10-2024 End: [facility] [facility] Start: 02-25-2024 End: [facility] Start: 02-09-2024 End: 02-09-[address] [facility] Start: 07-16-2023 End: 07-16-2023 ambulatory [facility] Work Phone: Start: 07-16-2023 End: 07-16-2023 Patient encounter procedure [facility] Start: 07-16-2023 End: 07-16-[address] [facility] Start: 06-17-2023 End: 06-17-2023 ambulatory [facility] Work Phone: Start: 06-17-2023 End: 06-17-2023 Patient encounter procedure [facility]-Laboratory, Specimen Work Phone: Start: 06-17-2023 End: 06-17-2023 ambulatory [facility] Facility:[facility] Start: 06-01-2023 End: 06-01-2023 ambulatory MICHAEL PALOMINO [facility] Start: 06-01-2023 End: 06-01-2023 Postop follow up visit related to original px Michael Palomino MD Work Phone: [facility] Comment on above: Postop check (Primar y Dx) Start: 04-19-2023 End: 04-19-2023 ambulatory MICHAEL PALOMINO [facility] Start: 04-19-2023 End: 04-19-2023 Subsequent hospital visit by physician Michael Palomino MD Work Phone: [facility] Comment on above: Postoperative pain ( Primary Dx) Start: 04-16-2023 ambulatory Michael Palomino MD Work Phone: [facility]ro[facility] Start: 04-15-2023 End: 04-15-2023 ambulatory MICHAEL PALOMINO [facility] Start: 04-15-2023 End: 04-15-2023 Office outpatient new 45 minutes Michael Palomino MD Work Phone: [facility] [facility] Comment on above: Stress incontinence (female) (male) (Primary Dx); Overactive bladder; Midline cystocele; Urgency incontinence Start: 03-03-2023 End: 03-03-2023 ambulatory [facility] Work Phone: Start: 03-03-2023 End: 03-03-2023 Patient encounter procedure [facility]-Radiology, [place] Work Phone: Start: 02-04-2023 End: 02-04-2023 Patient encounter procedure [facility]-Cat Scan, [facility] Work Phone: Start: 02-01-2023 Transcribe Orders Jossie gutierrez MD Work Phone: [facility]rogynecology Comment on above: Stress incontinence (female) (male) (Primary Dx) Start: 01-29-2023 End: 01-29-2023 ambulatory [facility] Work Phone: Start: 01-29-2023 End: 01-29-2023 Patient encounter procedure [facility]-Outpatient Breast Imaging Work Phone: Procedures Date Procedure Procedure Detail Performing Clinician Start: 06-17-2023 Urine culture Start: 04-19-2023 End: 04-19-2023 Anterior colporraphy rpr cystocele w/cysto Michael Palomino MD Work Phone: Start: 04-19-2023 End: 04-19-2023 Cystourethroscopy inj chemodenervation bladder Michael Palomino MD Work Phone: Start: 04-19-2023 End: 04-19-2023 Sling operation stress incontinence Michael Palomino MD Work Phone: Start: 04-15-2023 Urnls dip stick/tabl et rgnt non-auto w/o micrscp Michael Palomino MD Work Phone: Start: 03-03-2023 Plain chest X-ray Start: 02-04-2023 CT of chest Start: 01-29-2023 End: 01-29-2023 Screening mammography Plan of Treatment Date Care Activity Detail Author Start: 01-13-2033 DTaP/Tdap/Td Vaccines (2 - Td or Tdap) DTaP/Tdap/Td Vaccines (2 - Td or Tdap) [facility] Start: 2025 RSV Immunization aged 60 or older (1 - 1-dose 60+ series) RSV Immunization aged 60 or older (1 - 1-dose 60+ series) [facility] Start: 01-30-2024 Screening for malignant neoplasm of breast Mammogram [facility] Start: 10-07-2023 End: 10-07-2023 Patient encounter procedure 10/07/2023 2:00 PM EDT Procedure Visit [facility] [address] [place] [address] [address] [place] [address] Michael Palomino MD [address] [place] [address] [address] [place] [address] [facility] Start: 06-01-2023 End: 06-01-2023 Patient encounter procedure 06/01/2023 9:30 AM EST Office Visit [facility] [address] [place] [phone] Michael Palomino MD [address] [facility] [address], [address] [place] [address] [facility] Start: 04-19-2023 End: 04-19-2023 Admission to same day surgery center 04/19/2023 2:40 PM EDT - 04/19/2023 3:40 PM EDT Surgery [facility] MAIN OR [address] [place] [id number] Michael Palomino MD [address] [facility] [address] [facility], [address] [place] [address] mid urethral sling anterior repair, botox injection 100 units [01483 (CPT )] [facility] MAIN OR Comment on above: mid urethral sling anterior repair, boto x injection 100 units [53218 (CPT )] Start: 04-19-2023 End: 04-19-2023 Anesthesia consultation 04/19/2023 2:40 PM EDT Anesthesia Event [facility] MA[facility] OR [address] [place] [phone] Angie Sexton RN [facility] MAIN OR Start: 04-19-2023 End: 04-19-2023 Anterior colporraphy rpr cystocele w/cysto ANTERIOR COLPORRHAPHY REPAIR CYSTOCELE (ANTERIOR REPAIR) Stress incontinence (female) (male) 04/19/2023 2:40 PM EDT [facility] Operating Room Start: 04-19-2023 End: 04-19-2023 Cystourethroscopy inj chemodenervation bladder BOTOX INJECTION Stress incontinence (female) (male) 04/19/2023 2:40 PM EDT [facility] Operating Room Start: 04-19-2023 End: 04-19-2023 Sling operation stress incontinence SLING OPERATION FOR STRESS INCONTINENCE Stress incontinence (female) (male) 04/19/2023 2:40 PM EDT [facility] Operating Room Start: 04-19-2023 Subsequent hospital visit by physician 04/19/2023 2:40 PM EDT Hospital Encounter [facility] MAIN OR [address] [place] [facility] [place] [address] Michael Palomino MD [address] [facility], [address] [place] [address] [facility] MAIN OR Start: 03-19-2023 Influenza vaccination Influenza Vaccine (#1) [facility] Start: 2015 Screening for malignant neoplasm of lung Lung Cancer Screening [facility] Start: 2015 Zoster Vaccines (1 of 2) Zoster Vaccines (1 of 2) [facility] Start: 2005 Screening for malignant neoplasm of breast Mammogram [facility] Start: 1995 Screening for malignant neoplasm of cervix [facility] Start: 1986 Screening for malignant neoplasm of cervix Pap Smear [facility] Start: 1984 DTaP/Tdap/Td Vaccines (1 - Tdap) DTaP/Tdap/Td Vaccines (1 - Tdap) [facility] Start: 1983 Diabetes mellitus screening Diabetes Screening [facility] Start: 1983 Hepatitis C screening Hepatitis C Screening [facility] Start: 1977 Depression Screening Depression Screening [facility] Start: 1966 MMR Vaccines (1 of 1 - Standard series) MMR Vaccines (1 of 1 - Standard series) [facility] Start: 01-01-1966 COVID-19 Vaccine (#1) COVID-19 Vaccine (#1) [facility] Start: 1965 Hepatitis B Vaccines (1 of 3 - 3-dose series) Hepatitis B Vaccines (1 of 3 - 3-dose series) [facility] Start: 1965 HIV screening HIV Screening [facility] Start: 1965 Screening for malignant neoplasm of colon [facility] Bacteria identified in Urine by Culture Urine culture Microbiology Routine Overactive bladder Ordered: 04/15/2023 [facility] Comment on above: Ordered: 04/15/2023 OUTSIDE PROCEDURE SCAN OUTSIDE P ROCEDURE SCAN Procedures Ordered: 02/01/2023 [facility] Comment on above: Ordered: 02/01/2023 Urinalysis complete panel - Urine Complete Urinalysis Lab Routine Overactive bladder Ordered: 04/15/2023 [facility] [employer] [facility] Work Phone: Comment on above: Ordered: 04/15/2023 Immunizations Immunization Date Immunization Notes Care Provider Juan arnold 04-06-2023 influenza virus vacc ine, unspecified formulation Michael Palomino MD Work Phone: [facility] Payers Date Payer Category Payer Unknown [id number] 2024 Private Health Insurance [id number] 2023 Self-pay [id number] 2020 Private Health Insurance [facility] UMR OPT [id number] 2020-Present [address] [address] [place] [address] Commercial [id number] 2020 Private Health Insurance [id number] 2020 Unknown [id number] Unknown [id number] Unknown [id number] Unknown [id number] Unknown [id number] Unknown [id number] Social History Date Type Detail Facility Start: 08-23-2019 End: 08-23-2019 Tobacco smoking status NHIS Unknown if ever smoked [facility] Start: 1965 Sex Assigned At Female [facility] Start: 04-15-2023 Tobacco smoking stat NHIS Never smoked tobacco [facility] History of tobacco use Passive smoker [facility] Start: 04-15-2023 End: 04-19-2023 Tobacco use and exposure Smokeless tobacco non-user [facility] Start: 04-15-2023 End: 06-01-2023 Alcohol intake Current drinker of alcohol (finding) [facility] Start: 04-15-2023 End: 06-01-2023 History of Social function [facility] Start: 04-15-2023 End: 06-01-2023 Tobacco use panel [facility] Start: 1965 Sex Assigned At Not on file [facility] Start: 04-19-2023 Tobacco smoking stat us SCIS Ex-smoker [facility] End: 01-17-2023 History of tobacco use Current smoker [facility] End: 01-17-2023 History of tobacco use Cigarette Smoker [facility] Start: 04-19-2023 Alcohol Comment rare, social [facility] Start: 05-31-2023 Gender identity Identifies as female gender (finding) [facility] Start: 05-31-2023 Sexual orientation Heterosexual (fin ding) [facility] Medical Equipment Procedure Code Equipment Code Equipment Origin al Text Equipment Identifier Dates Sling Transvag A dv Fit Glen - [id number] Start: 04-19-2023 Clinical Notes 04-15-2023 to 06-01-2023 Michael Palomino MD - 06/01/2023 9:30 AM Olaf Cary MA - 06/01/2023 9:30 AM ESTPerioperative Nursing Note - Katy Dupree RN - 04/19/2023 4:31 PM EDTDischarge InstructionsAttachments Note Date & Type Note Facility 06-01-2023 History of Present illness Narrative 6 weeks after 1. Synthetic midurethral sling 2. Anterior repair 3. Cystoscopy with Botox intradetrusor injections (100U) Doing well, no c/o. Urinates well, denies LUKE, no OAB s/s. No vaginal bleeding/discharge. No pain Eats well, ambulates well, no N/V. PE: Suprapubic incisions healing well. No vaginal bleeding, min physiological vaginal discharge. Vaginal incisions healing well. No mesh erosion/exposure. No pain on palpation. Plan: Follow-up in 4 months for another Botox injection. Continue her home medications as prescribed. Plan discussed with the patient in detail. All questions were aswered. Exam Chaperoned By Norma Cary MA documented in this encounter [facility] 04-19-2023 Note Patient: Haris brizuela Procedure Summary Date: 04/19/23 Room / Location: [address] Operating Room Anesthesia Start: 1412 Anesthesia Stop: 1517 Procedures: MID URETHERAL SLING, ANTERIOR REPAIR, BOTOX INJECTION 100 UNITS; CYSTOSCOPY (Perineum) ANTERIOR COLPORRHAPHY REPAIR CYSTOCELE (ANTERIOR REPAIR) (Perineum) BOTOX INJECTION (Urethra) Diagnosis: Stress incontinence (female) (male) (Stress incontinence (female) (male) [N39.3]) Surgeons: Michael Palomino MD Responsible Provider: Sid Ricci MD Anesthesia Type: general ASA Status: 2 Anesthesia Type: general Vitals Value Taken Time BP 114/58 04/19/23 1520 Temp 97.7 04/19/23 1520 Pulse 78 04/19/23 1520 Resp 20 04/19/23 1520 SpO2 100 04/19/23 1520 Anesthesia Post Evaluation Patient location during evaluation: PACU Patient participation: complete - patient participated Level of consciousness: awake Pain management: satisfactory to patient Airway patency: patent Dental Injury: no Cardiovascular status: acceptable, blood pressure returned to baseline and hemodynamically stable Respiratory status: acceptable and spontaneous ventilation Hydration status: euvolemic Nausea/Vomiting: controlled No notable events documented. Patient can be discharged once all PACU criteria has been met. [facility] 04-19-2023 Note Patient: Haris Gray ter Procedure Summary Date: 04/19/23 Room / Location: [address] Operating Room Anesthesia Start: 1412 Anesthesia Stop: 1517 Procedures: MID URETHERAL SLING, ANTERIOR REPAIR, BOTOX INJECTION 100 UNITS; CYSTOSCOPY (Perineum) ANTERIOR COLPORRHAPHY REPAIR CYSTOCELE (ANTERIOR REPAIR) (Perineum) BOTOX INJECTION (Urethra) Diagnosis: Stress incontinence (female) (male) (Stress incontinence (female) (male) [N39.3]) Surgeons: Michael Palomino MD Responsible Provider: Sid Ricci MD Anesthesia Type: general ASA Status: 2 Anesthesia Type: general Vitals Value Taken Time BP 114/58 04/19/23 1518 Temp 97.7 04/19/23 1518 Pulse 78 04/19/23 1518 Resp 20 04/19/23 1518 SpO2 100 04/19/23 1518 Anesthesia Post Evaluation Patient location during evaluation: PACU Patient participation: complete - patient participated Level of consciousness: awake Pain score: 0 Pain management: satisfactory to patient Multimodal analgesia pain management approach Airway patency: patent Two or more strategies used to mitigate risk of obstructive sleep apnea Cardiovascular status: acceptable and hemodynamically stable Respiratory status: acceptable Hydration status: acceptable No notable events documented. MIPS #430 PONV Patient received an inhalational anesthetic (4554F) Patient does not exhibit three or more risk factors for PONV (X0430)) MIPS # 424 Perioperative Temperature Management Anesthesia time was 60 minutes or longer (4255F) At least one body temperature greater than 95.8F/35.5C achieved within the 30 mins immediately prior to or the 15 minutes immediately following anesthesia end time (G9771) MIPS #477 Multimodal Pain Management Not emergent case Patient was administered multimodal pain management (two or more drugs and/or interventions excluding systemic opioids) in the periopeartive period occurring at some time between 6 hours prior to anesthesia start time until discharged from PACU (G2148) MIPS #404 Anesthesiology Smoking Abstinence The patient is not a current smoker (e.g. cigarette, cigar, pipe, e-cigarette/vaping/marijuana) If no stop here (G9644) I completed my handoff to the receiving clinician during which we: 1. Identified the patient 2. Identified the responsible provider 3. Reviewed the pertinent medical history 4. Discussed the surgical course 5. Reviewed intra-op anesthesia management and issues during anesthesia 6. Set expectations for post-procedure period 7. Allowed opportunity for questions and acknowledgement of understanding. [facility] 04-19-2023 Note Formatting of this n ote might be different from the original. Instructions and rx given to pt and had verbalized understanding tolerated clear liquid well [facility] 04-19-2023 Miscellaneous Notes Instructions and rx given to pt and had verbalized understanding tolerated clear liquid well Pt on bedpan trying to urinate P.o. fluids clary well Awake and talking- resp even, unlabored- O2 d/c'd PREOPERATIVE DIAGNOSES: 1. Stress urinary incontinence 2. Cystocele 3. Overactive bladder POSTOPERATIVE DIAGNOSES: 1. Stress urinary incontinence 2. Cystocele 3. Overactive bladder PROCEDURE: 1. Synthetic midurethral sling 2. Anterior repair 3. Cystoscopy with Botox intradetrusor injections (100U) SURGEON: Michael Palomino M.D. FELT PAD CUTTER SURGEON: ANESTHESIA: General SPECIMENS: None DRAINS: Rosado FINDINGS: Stage II cystocele, normal cystoscopy with good sling placement. No bladder injuries. COMPLICATIONS: None STATUS AT THE END OF THE SURGERY: Stable DESCRIPTION OF PROCEDURE: After informed consent was obtained, the patient was taken back to the operating room. General anesthesia was administered. The legs were placed in the Yellofin stirrups being careful not to hyperflex nor hyperabduct her legs. She was then prepped and draped in the usual sterile fashion and the surgeons scrubbed. Examination under anesthesia revealed the above-mentioned findings. I started with the anterior repair part of the procedure. For that, the cystocele was grasped with 2 Allis clamps, 1 proximal and 1 distal to the cystocele in the middle. Then, 1% lidocaine with epinephrine was injected for hydrodissection. Then, an incision was made on the anterior vaginal wall in the midline between the 2 Allises. Then, the vaginal epithelium was dissected off the underlying tissues using blunt and sharp dissection. The bladder was then dissected laterally until all cystocele was dissected. Then, the cystocele was reduced and the pubocervical fascia was reapproximated in the midline with a few interrupted 2-0 Vicryl stitches. Then, the excess vaginal epithelium was trimmed and the incision was closed with a continuous 2-0 Vicryl stitch. Good hemostasis was noticed at the end. Attention was then turned to the sling procedure. For that, the mid urethra was grasped with two Allis clamps and injected on both sides with 1% lidocaine with epinephrine. An incision was then made approximately 2 cm over the mid urethra and the incision ended 2 cm above the previous incision for anterior repair. Then, the periurethral spaces were dissected sharply with the Metzenbaum scissors up to the level of the bony pelvis. The trocar was then inserted following through the tract that had been made in the periurethral area. This was performed on each side. After trocars insertion, cystoscopy was performed and no injuries to the bladder were observed. There was good ureteral spill of urine from both ureteral orifices. The sling was then adjusted with a #8 Hegar dilator between the tape and the urethra. The plastic was then removed and excess sling material was cut at the level of the skin. The vaginal incision was then closed with 2-0 Vicryl in a running fashion. The skin was closed with dermabond. Then, I continued with Botox intradetrusor injections. For that, a 30-degree cystoscope was introduced. The patient did have multiple trabeculations consistent with her overactive bladder. Next, 100 units of Botox were diluted with 10 mL of preservative free saline. Using an Olympus needle, the bladder was injected in 10 separate sites with 1 mL of diluted Botox. After removing the needles, all sites were hemostatic. Then, the Rosado catheter was replaced. There was good hemostasis at the end of the procedure. The patient tolerated the procedure well and she was sent to recovery room in stable condition. Patient educated on importance of coughing/ deep breathing after surgery to reduce risk of pneumonia. Patient educated on importance of early mobility to reduce the risk of blood clots. Falls prevention information reviewed with patient. Post-operative pain control and ways to prevent constipation discussed with patient. documented in this encounter [facility] 04-19-2023 Note Airway Date/Time: 04/19/2023 2:17 PM Urgency: scheduled General Information and Staff Patient location during procedure: Procedural Resident/FISH SALTER: Karine Mendoza RN Performed: FISH SALTER Performed by: Karine Mendoza RN Authorized by: Karine Mendoza RN Indications and Patient Condition Indications for airway management: anesthesia and airway protection Sedation level: Asleep Preoxygenated: yes Patient position: sniffing Mask difficulty assessment: 1 - vent by mask Final Airway Details Final airway type: supraglottic airway Successful airway: Igel Size 4 Number of attempts at approach: 1 [facility] 04-19-2023 Note Formatting of this n ote might be different from the original. Pt on bedpan trying to urinate [facility] 04-19-2023 Note H&P reviewed. The pa tient was examined and there are no changes to the H&P. [facility] 04-19-2023 Note Formatting of this n ote might be different from the original. P.o. fluids clary well [facility] 04-19-2023 Note Formatting of this n ote might be different from the original. Awake and talking- resp even, unlabored- O2 d/c'd [facility] 04-19-2023 Hospital Discharge instructions Michael Palomino MD - 04/19/2023 3:14 PM EDT Nothing in vagina (sex, douches, tampons) x 6 weeks. No heavy lifting (more than 15 pounds) for 6 weeks. No driving for 24 hours and when taking narcotic pain medications. The following attachments cannot be sent through Care Everywhere.Cystocele and Rectocele Repair Discharge Instructions (Swedish)Urethral Suspension, Tension-Free Vaginal Tape Procedure (Swedish)Botulinum Toxin Bladder Injections (Swedish)General Anesthesia Discharge Instructions (Swedish)documented in this encounter [facility] 04-19-2023 Attending History and physical note H&P reviewed. The patient was examined and there are no changes to the H&P. Source Note - Michael Palomino MD - 04/16/2023 4:26 PM EDT Chief Complaint Patient presents with New Patient Urine Leakage 58 y.o. female Urinary complaints started few years ago. Getting worse now. Tried meds before (oxybutynin) with no improvement. Also tried Kegel's with no results. Also feel as if something is falling out of the vagina; ball/bulge in thevagina. Getting worse during afternoon/evening. Pt does not manipulate to void or have BM. Stress incontinence: yes. Severe. It bothers her a lot and significantly impacts her quality of life. Urgency: yes, sometimes Urge incontinence: yes, sometimes Frequency: yes, urinates every 4-5 x during the day Nocturia: yes, 4 and 5 x per night Enuresis: No Pad use: yes, many Feels like she empties her bladder well. No recurrent UTI. No macroscopic hematuria. Sexual Activity: No; Dyspareunia: N/A Constipation: No Other bowel problems: None. Surgical History Past Surgical History: Procedure Laterality Date SURGICAL IMPLANT (HISTORICAL) [facility] 2 Medical History History reviewed. No pertinent past medical history. Current Medications Current Outpatient Medications Medication Sig Dispense Refill fluticasone-salmeterol (AirDuo RespiClick) 232-14 MCG/ACT inhaler ibuprofen 800 MG tablet oxybutynin XL (Ditropan-XL) 15 MG 24 hr tablet Take 15 mg by mouth daily. traMADol (Ultram) 50 MG tablet varenicline (Chantix) 1 MG tablet TAKE 1 TABLET BY MOUTH TWICE DAILY starting after completing dose .5mg pack No current facility-administered medications for this visit. OB History 2 Para Term AB 2 Living SAB IAB Ectopic Multiple Live Births 2 No Known Allergies Ht 5' 6 (1.676 m) Wt 214 lb (97.1 kg) LMP (LMP Unknown) No BMI 34.54 kg/m Physical Exam Vulva: atrophic Vagina: atrophic Cervix: atrophic Aa -1, Ba -1, C -6 gh 4, pb 3, tvl9 Ap -1, Bp -1, D 6 Levators: 2/5 Urethra: Hypermobility: Yes Incontinence: Supine: yes, severe Bimanual: uterus AV, mobile, nontender, not enlarged, no adnexal masses felt Rectal: good tone Residual volume, bladder us: ml Assessment: Diagnosis Plan 1. Stress incontinence (female) (male) Ambulatory referral to Urogynecology 2. Overactive bladder 3. Midline cystocele I spent a total time of 45 minutes caring for this patient today. The patient was seen and examined. . I have also spent time communicating results to the patient, counseling/educating the patient, documenting in the medical record and ordering the necessary procedures. I discussed the diagnosis and importance of compliance with the treatment plan. Stress urinary incontinence. Different treatment options were discussed with the patient in detail. Patient was taught Kegels exercises. Referral to pelvic floor therapy for biofeedback/electrostimulation was offered, but patient declined. Also, pessary and surgical treatment were discussed. She declined pessary fitting and wanted to proceed with surgery . A suburethral sling is recommended. I discussed the use of natural and synthetic material for her sling. I also discussed harvesting the patient's own tissue. The patient would prefer a synthetic material. The risk of mesh erosion was explained in detail. The patient is a candidate for a suburethral sling using synthetic material, and cystoscopy. The patient understands the purpose of the surgery. She understands the risks, which include but are not limited to pain (acute postoperative and/for chronic), bleeding, infection, injury to adjacent organs (including the bladder, bowel, urethra, ureters, blood vessels and nerves), dyspareunia, and fistula formation. She is aware of the possibility of additional surgery and/or re-operation to address any complications. She is aware of the risks of anesthesia, blood clots, and possible need for transfusion of blood products. She is aware of the possibility of urinary retention and the need for catheterization post-operatively. She understands that no operation can provide a 100% guarantee, and that recurrence of her stress incontinence is possible in the future. She understands that this operation is designed to treat stress incontinence specifically, and does not address detrusor instability, urge incontinence or other symptoms of overactive bladder. The patient was made aware of conservative options for treatment and has either tried or declined them. The patient demonstrated her understanding of the above and asked appropriate questions. All her questions were answered and informed consent was obtained. Also, pt with stage 2 anterior vaginal prolapse. Observation and different treatment options were discussed with the pt in detail. Pt would like to proceed with the surgical treatment at the same time with surgery for LUKE. She is a candidate for anterior repair. She understands the risks, which include but are not limited to pain (acute postoperative and/for chronic), bleeding, infection, injury to adjacent organs (including the bladder, bowel, urethra, ureters, blood vessels and nerves), dyspareunia, and fistula formation. She is aware of the possibility of additional surgery and/or re-operation to address any complications. She is aware of the risks of anesthesia, blood clots, and possible need for transfusion of blood products. She is aware of the possibility of urinary retention and the need for catheterization post-operatively. She understands that no operation can provide a 100% guarantee, and that recurrence of her prolapse is possible in the future. She understands that this operation is designed to treat prolapse specifically, and does not address stress urinary incontinence, detrusor instability, urge incontinence or other symptoms of overactive bladder. The patient was made aware of conservative options for treatment and has either tried or declined them. The patient demonstrated her understanding of the above and asked appropriate questions. All her questions were answered and informed consent was obtained. Refractory overactive bladder. Patient failed behavioral modifications (fluid restriction, bladder diet, bladder training, urge suppression techniques), and Kegels exercises. Also patient failed medications. Other treatment options were reviewed with the patient. Botox intradetrusor injections, and neuromodulation (PTNS and sacral neuromodulation) were discussed in detail. After all her questions were answered, the patient decided to proceed with Botox intradetrusor injections. Risks, benefits, and alternatives of the Botox treatment were discussed with the patient. Risks of the procedure include, but not limited to: urinary retention in about 6% of patients (12% in patients with diabetes) that might require catheterization up to 4 times a day, mostly for a few weeks but sometimes much longer, until the botox will wear off (7 to 8 months); hematuria; urinary tract infection; other side effects that may occur if the drug spreads to other parts of the body and may include muscle weakness, which can affect swallowing, speech or breathing. She is aware of the risks of anesthesia, blood clots, and possible need for transfusion of blood products. She understands that no operation can provide a 100% guarantee, and that recurrence of her OAB is possible in the future. She understands that this operation is designed to treat OAB specifically, and does not address LUKE. The patient was made aware of conservative options for treatment and has either tried or declined them. The patient demonstrated her understanding of the above and asked appropriate questions. All her questions were answered and informed consent was obtained. Plan: Synthetic midurethral sling, anterior repair, Botox intra detrusor injections, and cystoscopy. [facility] 04-19-2023 History and physical note H&P reviewed. The patient was examined and there are no changes to the H&P. Source Note - Michael Palomino MD - 04/16/2023 4:26 PM EDT Chief Complaint Patient presents with New Patient Urine Leakage 58 y.o. female Urinary complaints started few years ago. Getting worse now. Tried meds before (oxybutynin) with no improvement. Also tried Kegel's with no results. Also feel as if something is falling out of the vagina; ball/bulge in thevagina. Getting worse during afternoon/evening. Pt does not manipulate to void or have BM. Stress incontinence: yes. Severe. It bothers her a lot and significantly impacts her quality of life. Urgency: yes, sometimes Urge incontinence: yes, sometimes Frequency: yes, urinates every 4-5 x during the day Nocturia: yes, 4 and 5 x per night Enuresis: No Pad use: yes, many Feels like she empties her bladder well. No recurrent UTI. No macroscopic hematuria. Sexual Activity: No; Dyspareunia: N/A Constipation: No Other bowel problems: None. Surgical History Past Surgical History: Procedure Laterality Date SURGICAL IMPLANT (HISTORICAL) [facility] 2 Medical History History reviewed. No pertinent past medical history. Current Medications Current Outpatient Medications Medication Sig Dispense Refill fluticasone-salmeterol (AirDuo RespiClick) 232-14 MCG/ACT inhaler ibuprofen 800 MG tablet oxybutynin XL (Ditropan-XL) 15 MG 24 hr tablet Take 15 mg by mouth daily. traMADol (Ultram) 50 MG tablet varenicline (Chantix) 1 MG tablet TAKE 1 TABLET BY MOUTH TWICE DAILY starting after completing dose .5mg pack No current facility-administered medications for this visit. OB History 2 Para Term AB 2 Living SAB IAB Ectopic Multiple Live Births 2 No Known Allergies Ht 5' 6 (1.676 m) Wt 214 lb (97.1 kg) LMP (LMP Unknown) No BMI 34.54 kg/m Physical Exam Vulva: atrophic Vagina: atrophic Cervix: atrophic Aa -1, Ba -1, C -6 gh 4, pb 3, tvl9 Ap -1, Bp -1, D 6 Levators: 2/5 Urethra: Hypermobility: Yes Incontinence: Supine: yes, severe Bimanual: uterus AV, mobile, nontender, not enlarged, no adnexal masses felt Rectal: good tone Residual volume, bladder us: ml Assessment: Diagnosis Plan 1. Stress incontinence (female) (male) Ambulatory referral to Urogynecology 2. Overactive bladder 3. Midline cystocele I spent a total time of 45 minutes caring for this patient today. The patient was seen and examined. . I have also spent time communicating results to the patient, counseling/educating the patient, documenting in the medical record and ordering the necessary procedures. I discussed the diagnosis and importance of compliance with the treatment plan. Stress urinary incontinence. Different treatment options were discussed with the patient in detail. Patient was taught Kegels exercises. Referral to pelvic floor therapy for biofeedback/electrostimulation was offered, but patient declined. Also, pessary and surgical treatment were discussed. She declined pessary fitting and wanted to proceed with surgery . A suburethral sling is recommended. I discussed the use of natural and synthetic material for her sling. I also discussed harvesting the patient's own tissue. The patient would prefer a synthetic material. The risk of mesh erosion was explained in detail. The patient is a candidate for a suburethral sling using synthetic material, and cystoscopy. The patient understands the purpose of the surgery. She understands the risks, which include but are not limited to pain (acute postoperative and/for chronic), bleeding, infection, injury to adjacent organs (including the bladder, bowel, urethra, ureters, blood vessels and nerves), dyspareunia, and fistula formation. She is aware of the possibility of additional surgery and/or re-operation to address any complications. She is aware of the risks of anesthesia, blood clots, and possible need for transfusion of blood products. She is aware of the possibility of urinary retention and the need for catheterization post-operatively. She understands that no operation can provide a 100% guarantee, and that recurrence of her stress incontinence is possible in the future. She understands that this operation is designed to treat stress incontinence specifically, and does not address detrusor instability, urge incontinence or other symptoms of overactive bladder. The patient was made aware of conservative options for treatment and has either tried or declined them. The patient demonstrated her understanding of the above and asked appropriate questions. All her questions were answered and informed consent was obtained. Also, pt with stage 2 anterior vaginal prolapse. Observation and different treatment options were discussed with the pt in detail. Pt would like to proceed with the surgical treatment at the same time with surgery for LUKE. She is a candidate for anterior repair. She understands the risks, which include but are not limited to pain (acute postoperative and/for chronic), bleeding, infection, injury to adjacent organs (including the bladder, bowel, urethra, ureters, blood vessels and nerves), dyspareunia, and fistula formation. She is aware of the possibility of additional surgery and/or re-operation to address any complications. She is aware of the risks of anesthesia, blood clots, and possible need for transfusion of blood products. She is aware of the possibility of urinary retention and the need for catheterization post-operatively. She understands that no operation can provide a 100% guarantee, and that recurrence of her prolapse is possible in the future. She understands that this operation is designed to treat prolapse specifically, and does not address stress urinary incontinence, detrusor instability, urge incontinence or other symptoms of overactive bladder. The patient was made aware of conservative options for treatment and has either tried or declined them. The patient demonstrated her understanding of the above and asked appropriate questions. All her questions were answered and informed consent was obtained. Refractory overactive bladder. Patient failed behavioral modifications (fluid restriction, bladder diet, bladder training, urge suppression techniques), and Kegels exercises. Also patient failed medications. Other treatment options were reviewed with the patient. Botox intradetrusor injections, and neuromodulation (PTNS and sacral neuromodulation) were discussed in detail. After all her questions were answered, the patient decided to proceed with Botox intradetrusor injections. Risks, benefits, and alternatives of the Botox treatment were discussed with the patient. Risks of the procedure include, but not limited to: urinary retention in about 6% of patients (12% in patients with diabetes) that might require catheterization up to 4 times a day, mostly for a few weeks but sometimes much longer, until the botox will wear off (7 to 8 months); hematuria; urinary tract infection; other side effects that may occur if the drug spreads to other parts of the body and may include muscle weakness, which can affect swallowing, speech or breathing. She is aware of the risks of anesthesia, blood clots, and possible need for transfusion of blood products. She understands that no operation can provide a 100% guarantee, and that recurrence of her OAB is possible in the future. She understands that this operation is designed to treat OAB specifically, and does not address LUKE. The patient was made aware of conservative options for treatment and has either tried or declined them. The patient demonstrated her understanding of the above and asked appropriate questions. All her questions were answered and informed consent was obtained. Plan: Synthetic midurethral sling, anterior repair, Botox intra detrusor injections, and cystoscopy. documented in this encounter [facility] 04-19-2023 Note Formatting of this n ote might be different from the original. PREOPERATIVE DIAGNOSES: 1. Stress urinary incontinence 2. Cystocele 3. Overactive bladder POSTOPERATIVE DIAGNOSES: 1. Stress urinary incontinence 2. Cystocele 3. Overactive bladder PROCEDURE: 1. Synthetic midurethral sling 2. Anterior repair 3. Cystoscopy with Botox intradetrusor injections (100U) SURGEON: Michael Palomino M.D. [employer] SURGEON: ANESTHESIA: General SPECIMENS: None DRAINS: Rosado FINDINGS: Stage II cystocele, normal cystoscopy with good sling placement. No bladder injuries. COMPLICATIONS: None STATUS AT THE END OF THE SURGERY: Stable DESCRIPTION OF PROCEDURE: After informed consent was obtained, the patient was taken back to the operating room. General anesthesia was administered. The legs were placed in the Yellofin stirrups being careful not to hyperflex nor hyperabduct her legs. She was then prepped and draped in the usual sterile fashion and the surgeons scrubbed. Examination under anesthesia revealed the above-mentioned findings. I started with the anterior repair part of the procedure. For that, the cystocele was grasped with 2 Allis clamps, 1 proximal and 1 distal to the cystocele in the middle. Then, 1% lidocaine with epinephrine was injected for hydrodissection. Then, an incision was made on the anterior vaginal wall in the midline between the 2 Allises. Then, the vaginal epithelium was dissected off the underlying tissues using blunt and sharp dissection. The bladder was then dissected laterally until all cystocele was dissected. Then, the cystocele was reduced and the pubocervical fascia was reapproximated in the midline with a few interrupted 2-0 Vicryl stitches. Then, the excess vaginal epithelium was trimmed and the incision was closed with a continuous 2-0 Vicryl stitch. Good hemostasis was noticed at the end. Attention was then turned to the sling procedure. For that, the mid urethra was grasped with two Allis clamps and injected on both sides with 1% lidocaine with epinephrine. An incision was then made approximately 2 cm over the mid urethra and the incision ended 2 cm above the previous incision for anterior repair. Then, the periurethral spaces were dissected sharply with the Metzenbaum scissors up to the level of the bony pelvis. The trocar was then inserted following through the tract that had been made in the periurethral area. This was performed on each side. After trocars insertion, cystoscopy was performed and no injuries to the bladder were observed. There was good ureteral spill of urine from both ureteral orifices. The sling was then adjusted with a #8 Hegar dilator between the tape and the urethra. The plastic was then removed and excess sling material was cut at the level of the skin. The vaginal incision was then closed with 2-0 Vicryl in a running fashion. The skin was closed with dermabond. Then, I continued with Botox intradetrusor injections. For that, a 30-degree cystoscope was introduced. The patient did have multiple trabeculations consistent with her overactive bladder. Next, 100 units of Botox were diluted with 10 mL of preservative free saline. Using an Olympus needle, the bladder was injected in 10 separate sites with 1 mL of diluted Botox. After removing the needles, all sites were hemostatic. Then, the Rosado catheter was replaced. There was good hemostasis at the end of the procedure. The patient tolerated the procedure well and she was sent to recovery room in stable condition. . [facility] [employer] 04-19-2023 Note Formatting of this n ote might be different from the original. Patient educated on importance of coughing/ deep breathing after surgery to reduce risk of pneumonia. Patient educated on importance of early mobility to reduce the risk of blood clots. Falls prevention information reviewed with patient. Post-operative pain control and ways to prevent constipation discussed with patient. . [facility] [employer] 04-16-2023 Note Chief Complaint Patient presents with New Patient Urine Leakage 58 y.o. female Urinary complaints started few years ago. Getting worse now. Tried meds before (oxybutynin) with no improvement. Also tried Kegel's with no results. Also feel as if something is falling out of the vagina; ball/bulge in thevagina. Getting worse during afternoon/evening. Pt does not manipulate to void or have BM. Stress incontinence: yes. Severe. It bothers her a lot and significantly impacts her quality of life. Urgency: yes, sometimes Urge incontinence: yes, sometimes Frequency: yes, urinates every 4-5 x during the day Nocturia: yes, 4 and 5 x per night Enuresis: No Pad use: yes, many Feels like she empties her bladder well. No recurrent UTI. No macroscopic hematuria. Sexual Activity: No; Dyspareunia: N/A Constipation: No Other bowel problems: None. Surgical History Past Surgical History: Procedure Laterality Date SURGICAL IMPLANT (HISTORICAL) [facility] 2 Medical History History reviewed. No pertinent past medical history. Current Medications Current Outpatient Medications Medication Sig Dispense Refill fluticasone-salmeterol (AirDuo RespiClick) 232-14 MCG/ACT inhaler ibuprofen 800 MG tablet oxybutynin XL (Ditropan-XL) 15 MG 24 hr tablet Take 15 mg by mouth daily. traMADol (Ultram) 50 MG tablet varenicline (Chantix) 1 MG tablet TAKE 1 TABLET BY MOUTH TWICE DAILY starting after completing dose .5mg pack No current facility-administered medications for this visit. OB History 2 Para Term AB 2 Living SAB IAB Ectopic Multiple Live Births 2 No Known Allergies Ht 5' 6 (1.676 m) Wt 214 lb (97.1 kg) LMP (LMP Unknown) No BMI 34.54 kg/m? Physical Exam Vulva: atrophic Vagina: atrophic Cervix: atrophic Aa -1, Ba -1, C -6 gh 4, pb 3, tvl9 Ap -1, Bp -1, D 6 Levators: 2/5 Urethra: Hypermobility: Yes Incontinence: Supine: yes, severe Bimanual: uterus AV, mobile, nontender, not enlarged, no adnexal masses felt Rectal: good tone Residual volume, bladder us: ml Assessment: Diagnosis Plan 1. Stress incontinence (female) (male) Ambulatory referral to Urogynecology 2. Overactive bladder 3. Midline cystocele I spent a total time of 45 minutes caring for this patient today. The patient was seen and examined. . I have also spent time communicating results to the patient, counseling/educating the patient, documenting in the medical record and ordering the necessary procedures. I discussed the diagnosis and importance of compliance with the treatment plan. Stress urinary incontinence. Different treatment options were discussed with the patient in detail. Patient was taught Kegels exercises. Referral to pelvic floor therapy for biofeedback/electrostimulation was offered, but patient declined. Also, pessary and surgical treatment were discussed. She declined pessary fitting and wanted to proceed with surgery . A suburethral sling is recommended. I discussed the use of natural and synthetic material for her sling. I also discussed harvesting the patient's own tissue. The patient would prefer a synthetic material. The risk of mesh erosion was explained in detail. The patient is a candidate for a suburethral sling using synthetic material, and cystoscopy. The patient understands the purpose of the surgery. She understands the risks, which include but are not limited to pain (acute postoperative and/for chronic), bleeding, infection, injury to adjacent organs (including the bladder, bowel, urethra, ureters, blood vessels and nerves), dyspareunia, and fistula formation. She is aware of the possibility of additional surgery and/or re-operation to address any complications. She is aware of the risks of anesthesia, blood clots, and possible need for transfusion of blood products. She is aware of the possibility of urinary retention and the need for catheterization post-operatively. She understands that no operation can provide a 100% guarantee, and that recurrence of her stress incontinence is possible in the future. She understands that this operation is designed to treat stress incontinence specifically, and does not address detrusor instability, urge incontinence or other symptoms of overactive bladder. The patient was made aware of conservative options for treatment and has either tried or declined them. The patient demonstrated her understanding of the above and asked appropriate questions. All her questions were answered and informed consent was obtained. Also, pt with stage 2 anterior vaginal prolapse. Observation and different treatment options were discussed with the pt in detail. Pt would like to proceed with the surgical treatment at the same time with surgery for LUKE. She is a candidate for anterior repair. She understands the risks, which include but are not limited to pain (acute postoperative (more content not included)... [facility] 04-16-2023 Note Chief Complaint Patient presents with New Patient Urine Leakage 58 y.o. female Urinary complaints started few years ago. Getting worse now. Tried meds before (oxybutynin) with no improvement. Also tried Kegel's with no results. Also feel as if something is falling out of the vagina; ball/bulge in thevagina. Getting worse during afternoon/evening. Pt does not manipulate to void or have BM. Stress incontinence: yes. Severe. It bothers her a lot and significantly impacts her quality of life. Urgency: yes, sometimes Urge incontinence: yes, sometimes Frequency: yes, urinates every 4-5 x during the day Nocturia: yes, 4 and 5 x per night Enuresis: No Pad use: yes, many Feels like she empties her bladder well. No recurrent UTI. No macroscopic hematuria. Sexual Activity: No; Dyspareunia: N/A Constipation: No Other bowel problems: None. Surgical History Past Surgical History: Procedure Laterality Date SURGICAL IMPLANT (HISTORICAL) [facility] 2 Medical History History reviewed. No pertinent past medical history. Current Medications Current Outpatient Medications Medication Sig Dispense Refill fluticasone-salmeterol (AirDuo RespiClick) 232-14 MCG/ACT inhaler ibuprofen 800 MG tablet oxybutynin XL (Ditropan-XL) 15 MG 24 hr tablet Take 15 mg by mouth daily. traMADol (Ultram) 50 MG tablet varenicline (Chantix) 1 MG tablet TAKE 1 TABLET BY MOUTH TWICE DAILY starting after completing dose .5mg pack No current facility-administered medications for this visit. OB History 2 Para Term AB 2 Living SAB IAB Ectopic Multiple Live Births 2 No Known Allergies Ht 5' 6 (1.676 m) Wt 214 lb (97.1 kg) LMP (LMP Unknown) No BMI 34.54 kg/m? Physical Exam Vulva: atrophic Vagina: atrophic Cervix: atrophic Aa -1, Ba -1, C -6 gh 4, pb 3, tvl9 Ap -1, Bp -1, D 6 Levators: 2/5 Urethra: Hypermobility: Yes Incontinence: Supine: yes, severe Bimanual: uterus AV, mobile, nontender, not enlarged, no adnexal masses felt Rectal: good tone Residual volume, bladder us: ml Assessment: Diagnosis Plan 1. Stress incontinence (female) (male) Ambulatory referral to Urogynecology 2. Overactive bladder 3. Midline cystocele I spent a total time of 45 minutes caring for this patient today. The patient was seen and examined. . I have also spent time communicating results to the patient, counseling/educating the patient, documenting in the medical record and ordering the necessary procedures. I discussed the diagnosis and importance of compliance with the treatment plan. Stress urinary incontinence. Different treatment options were discussed with the patient in detail. Patient was taught Kegels exercises. Referral to pelvic floor therapy for biofeedback/electrostimulation was offered, but patient declined. Also, pessary and surgical treatment were discussed. She declined pessary fitting and wanted to proceed with surgery . A suburethral sling is recommended. I discussed the use of natural and synthetic material for her sling. I also discussed harvesting the patient's own tissue. The patient would prefer a synthetic material. The risk of mesh erosion was explained in detail. The patient is a candidate for a suburethral sling using synthetic material, and cystoscopy. The patient understands the purpose of the surgery. She understands the risks, which include but are not limited to pain (acute postoperative and/for chronic), bleeding, infection, injury to adjacent organs (including the bladder, bowel, urethra, ureters, blood vessels and nerves), dyspareunia, and fistula formation. She is aware of the possibility of additional surgery and/or re-operation to address any complications. She is aware of the risks of anesthesia, blood clots, and possible need for transfusion of blood products. She is aware of the possibility of urinary retention and the need for catheterization post-operatively. She understands that no operation can provide a 100% guarantee, and that recurrence of her stress incontinence is possible in the future. She understands that this operation is designed to treat stress incontinence specifically, and does not address detrusor instability, urge incontinence or other symptoms of overactive bladder. The patient was made aware of conservative options for treatment and has either tried or declined them. The patient demonstrated her understanding of the above and asked appropriate questions. All her questions were answered and informed consent was obtained. Also, pt with stage 2 anterior vaginal prolapse. Observation and different treatment options were discussed with the pt in detail. Pt would like to proceed with the surgical treatment at the same time with surgery for LUKE. She is a candidate for anterior repair. She understands the risks, which include but are not limited to pain (acute postoperative (more content not included)... [facility] 04-16-2023 History and physical note Chief Complaint Patient presents with New Patient Urine Leakage 58 y.o. female Urinary complaints started few years ago. Getting worse now. Tried meds before (oxybutynin) with no improvement. Also tried Kegel's with no results. Also feel as if something is falling out of the vagina; ball/bulge in thevagina. Getting worse during afternoon/evening. Pt does not manipulate to void or have BM. Stress incontinence: yes. Severe. It bothers her a lot and significantly impacts her quality of life. Urgency: yes, sometimes Urge incontinence: yes, sometimes Frequency: yes, urinates every 4-5 x during the day Nocturia: yes, 4 and 5 x per night Enuresis: No Pad use: yes, many Feels like she empties her bladder well. No recurrent UTI. No macroscopic hematuria. Sexual Activity: No; Dyspareunia: N/A Constipation: No Other bowel problems: None. Surgical History Past Surgical History: Procedure Laterality Date SURGICAL IMPLANT (HISTORICAL) bith 2 Medical History History reviewed. No pertinent past medical history. Current Medications Current Outpatient Medications Medication Sig Dispense Refill fluticasone-salmeterol (AirDuo RespiClick) 232-14 MCG/ACT inhaler ibuprofen 800 MG tablet oxybutynin XL (Ditropan-XL) 15 MG 24 hr tablet Take 15 mg by mouth daily. traMADol (Ultram) 50 MG tablet varenicline (Chantix) 1 MG tablet TAKE 1 TABLET BY MOUTH TWICE DAILY starting after completing dose .5mg pack No current facility-administered medications for this visit. OB History 2 Para Term AB 2 Living SAB IAB Ectopic Multiple Live Births 2 No Known Allergies Ht 5' 6 (1.676 m) Wt 214 lb (97.1 kg) LMP (LMP Unknown) No BMI 34.54 kg/m Physical Exam Vulva: atrophic Vagina: atrophic Cervix: atrophic Aa -1, Ba -1, C -6 gh 4, pb 3, tvl9 Ap -1, Bp -1, D 6 Levators: 2/5 Urethra: Hypermobility: Yes Incontinence: Supine: yes, severe Bimanual: uterus AV, mobile, nontender, not enlarged, no adnexal masses felt Rectal: good tone Residual volume, bladder us: ml Assessment: Diagnosis Plan 1. Stress incontinence (female) (male) Ambulatory referral to Urogynecology 2. Overactive bladder 3. Midline cystocele I spent a total time of 45 minutes caring for this patient today. The patient was seen and examined. . I have also spent time communicating results to the patient, counseling/educating the patient, documenting in the medical record and ordering the necessary procedures. I discussed the diagnosis and importance of compliance with the treatment plan. Stress urinary incontinence. Different treatment options were discussed with the patient in detail. Patient was taught Kegels exercises. Referral to pelvic floor therapy for biofeedback/electrostimulation was offered, but patient declined. Also, pessary and surgical treatment were discussed. She declined pessary fitting and wanted to proceed with surgery . A suburethral sling is recommended. I discussed the use of natural and synthetic material for her sling. I also discussed harvesting the patient's own tissue. The patient would prefer a synthetic material. The risk of mesh erosion was explained in detail. The patient is a candidate for a suburethral sling using synthetic material, and cystoscopy. The patient understands the purpose of the surgery. She understands the risks, which include but are not limited to pain (acute postoperative and/for chronic), bleeding, infection, injury to adjacent organs (including the bladder, bowel, urethra, ureters, blood vessels and nerves), dyspareunia, and fistula formation. She is aware of the possibility of additional surgery and/or re-operation to address any complications. She is aware of the risks of anesthesia, blood clots, and possible need for transfusion of blood products. She is aware of the possibility of urinary retention and the need for catheterization post-operatively. She understands that no operation can provide a 100% guarantee, and that recurrence of her stress incontinence is possible in the future. She understands that this operation is designed to treat stress incontinence specifically, and does not address detrusor instability, urge incontinence or other symptoms of overactive bladder. The patient was made aware of conservative options for treatment and has either tried or declined them. The patient demonstrated her understanding of the above and asked appropriate questions. All her questions were answered and informed consent was obtained. Also, pt with stage 2 anterior vaginal prolapse. Observation and different treatment options were discussed with the pt in detail. Pt would like to proceed with the surgical treatment at the same time with surgery for LUKE. She is a candidate for anterior repair. She understands the risks, which include but are not limited to pain (acute postoperative and/for chronic), bleeding, infection, injury to adjacent organs (including the bladder, bowel, urethra, ureters, blood vessels and nerves), dyspareunia, and fistula formation. She is aware of the possibility of additional surgery and/or re-operation to address any complications. She is aware of the risks of anesthesia, blood clots, and possible need for transfusion of blood products. She is aware of the possibility of urinary retention and the need for catheterization post-operatively. She understands that no operation can provide a 100% guarantee, and that recurrence of her prolapse is possible in the future. She understands that this operation is designed to treat prolapse specifically, and does not address stress urinary incontinence, detrusor instability, urge incontinence or other symptoms of overactive bladder. The patient was made aware of conservative options for treatment and has either tried or declined them. The patient demonstrated her understanding of the above and asked appropriate questions. All her questions were answered and informed consent was obtained. Refractory overactive bladder. Patient failed behavioral modifications (fluid restriction, bladder diet, bladder training, urge suppression techniques), and Kegels exercises. Also patient failed medications. Other treatment options were reviewed with the patient. Botox intradetrusor injections, and neuromodulation (PTNS and sacral neuromodulation) were discussed in detail. After all her questions were answered, the patient decided to proceed with Botox intradetrusor injections. Risks, benefits, and alternatives of the Botox treatment were discussed with the patient. Risks of the procedure include, but not limited to: urinary retention in about 6% of patients (12% in patients with diabetes) that might require catheterization up to 4 times a day, mostly for a few weeks but sometimes much longer, until the botox will wear off (7 to 8 months); hematuria; urinary tract infection; other side effects that may occur if the drug spreads to other parts of the body and may include muscle weakness, which can affect swallowing, speech or breathing. She is aware of the risks of anesthesia, blood clots, and possible need for transfusion of blood products. She understands that no operation can provide a 100% guarantee, and that recurrence of her OAB is possible in the future. She understands that this operation is designed to treat OAB specifically, and does not address LUKE. The patient was made aware of conservative options for treatment and has either tried or declined them. The patient demonstrated her understanding of the above and asked appropriate questions. All her questions were answered and informed consent was obtained. Plan: Synthetic midurethral sling, anterior repair, Botox intra detrusor injections, and cystoscopy. [facility] [employer] Work Phone: 04-16-2023 History and physical note Chief Complaint Patient presents with New Patient Urine Leakage 58 y.o. female Urinary complaints started few years ago. Getting worse now. Tried meds before (oxybutynin) with no improvement. Also tried Kegel's with no results. Also feel as if something is falling out of the vagina; ball/bulge in thevagina. Getting worse during afternoon/evening. Pt does not manipulate to void or have BM. Stress incontinence: yes. Severe. It bothers her a lot and significantly impacts her quality of life. Urgency: yes, sometimes Urge incontinence: yes, sometimes Frequency: yes, urinates every 4-5 x during the day Nocturia: yes, 4 and 5 x per night Enuresis: No Pad use: yes, many Feels like she empties her bladder well. No recurrent UTI. No macroscopic hematuria. Sexual Activity: No; Dyspareunia: N/A Constipation: No Other bowel problems: None. Surgical History Past Surgical History: Procedure Laterality Date SURGICAL IMPLANT (HISTORICAL) bith 2 Medical History History reviewed. No pertinent past medical history. Current Medications Current Outpatient Medications Medication Sig Dispense Refill fluticasone-salmeterol (AirDuo RespiClick) 232-14 MCG/ACT inhaler ibuprofen 800 MG tablet oxybutynin XL (Ditropan-XL) 15 MG 24 hr tablet Take 15 mg by mouth daily. traMADol (Ultram) 50 MG tablet varenicline (Chantix) 1 MG tablet TAKE 1 TABLET BY MOUTH TWICE DAILY starting after completing dose .5mg pack No current facility-administered medications for this visit. OB History 2 Para Term AB 2 Living SAB IAB Ectopic Multiple Live Births 2 No Known Allergies Ht 5' 6 (1.676 m) Wt 214 lb (97.1 kg) LMP (LMP Unknown) No BMI 34.54 kg/m Physical Exam Vulva: atrophic Vagina: atrophic Cervix: atrophic Aa -1, Ba -1, C -6 gh 4, pb 3, tvl9 Ap -1, Bp -1, D 6 Levators: 2/5 Urethra: Hypermobility: Yes Incontinence: Supine: yes, severe Bimanual: uterus AV, mobile, nontender, not enlarged, no adnexal masses felt Rectal: good tone Residual volume, bladder us: ml Assessment: Diagnosis Plan 1. Stress incontinence (female) (male) Ambulatory referral to Urogynecology 2. Overactive bladder 3. Midline cystocele I spent a total time of 45 minutes caring for this patient today. The patient was seen and examined. . I have also spent time communicating results to the patient, counseling/educating the patient, documenting in the medical record and ordering the necessary procedures. I discussed the diagnosis and importance of compliance with the treatment plan. Stress urinary incontinence. Different treatment options were discussed with the patient in detail. Patient was taught Kegels exercises. Referral to pelvic floor therapy for biofeedback/electrostimulation was offered, but patient declined. Also, pessary and surgical treatment were discussed. She declined pessary fitting and wanted to proceed with surgery . A suburethral sling is recommended. I discussed the use of natural and synthetic material for her sling. I also discussed harvesting the patient's own tissue. The patient would prefer a synthetic material. The risk of mesh erosion was explained in detail. The patient is a candidate for a suburethral sling using synthetic material, and cystoscopy. The patient understands the purpose of the surgery. She understands the risks, which include but are not limited to pain (acute postoperative and/for chronic), bleeding, infection, injury to adjacent organs (including the bladder, bowel, urethra, ureters, blood vessels and nerves), dyspareunia, and fistula formation. She is aware of the possibility of additional surgery and/or re-operation to address any complications. She is aware of the risks of anesthesia, blood clots, and possible need for transfusion of blood products. She is aware of the possibility of urinary retention and the need for catheterization post-operatively. She understands that no operation can provide a 100% guarantee, and that recurrence of her stress incontinence is possible in the future. She understands that this operation is designed to treat stress incontinence specifically, and does not address detrusor instability, urge incontinence or other symptoms of overactive bladder. The patient was made aware of conservative options for treatment and has either tried or declined them. The patient demonstrated her understanding of the above and asked appropriate questions. All her questions were answered and informed consent was obtained. Also, pt with stage 2 anterior vaginal prolapse. Observation and different treatment options were discussed with the pt in detail. Pt would like to proceed with the surgical treatment at the same time with surgery for LUKE. She is a candidate for anterior repair. She understands the risks, which include but are not limited to pain (acute postoperative and/for chronic), bleeding, infection, injury to adjacent organs (including the bladder, bowel, urethra, ureters, blood vessels and nerves), dyspareunia, and fistula formation. She is aware of the possibility of additional surgery and/or re-operation to address any complications. She is aware of the risks of anesthesia, blood clots, and possible need for transfusion of blood products. She is aware of the possibility of urinary retention and the need for catheterization post-operatively. She understands that no operation can provide a 100% guarantee, and that recurrence of her prolapse is possible in the future. She understands that this operation is designed to treat prolapse specifically, and does not address stress urinary incontinence, detrusor instability, urge incontinence or other symptoms of overactive bladder. The patient was made aware of conservative options for treatment and has either tried or declined them. The patient demonstrated her understanding of the above and asked appropriate questions. All her questions were answered and informed consent was obtained. Refractory overactive bladder. Patient failed behavioral modifications (fluid restriction, bladder diet, bladder training, urge suppression techniques), and Kegels exercises. Also patient failed medications. Other treatment options were reviewed with the patient. Botox intradetrusor injections, and neuromodulation (PTNS and sacral neuromodulation) were discussed in detail. After all her questions were answered, the patient decided to proceed with Botox intradetrusor injections. Risks, benefits, and alternatives of the Botox treatment were discussed with the patient. Risks of the procedure include, but not limited to: urinary retention in about 6% of patients (12% in patients with diabetes) that might require catheterization up to 4 times a day, mostly for a few weeks but sometimes much longer, until the botox will wear off (7 to 8 months); hematuria; urinary tract infection; other side effects that may occur if the drug spreads to other parts of the body and may include muscle weakness, which can affect swallowing, speech or breathing. She is aware of the risks of anesthesia, blood clots, and possible need for transfusion of blood products. She understands that no operation can provide a 100% guarantee, and that recurrence of her OAB is possible in the future. She understands that this operation is designed to treat OAB specifically, and does not address LUKE. The patient was made aware of conservative options for treatment and has either tried or declined them. The patient demonstrated her understanding of the above and asked appropriate questions. All her questions were answered and informed consent was obtained. Plan: Synthetic midurethral sling, anterior repair, Botox intra detrusor injections, and cystoscopy. documented in this encounter [facility] 04-16-2023 Note Patient: Haris chatmna Procedure Information Date/Time: 04/19/23 1440 Procedures: mid urethral sling anterior repair, botox injection 100 units (Perineum) ANTERIOR COLPORRHAPHY REPAIR CYSTOCELE (ANTERIOR REPAIR) (Perineum) BOTOX INJECTION (Urethra) Location: [address] Operating Room Surgeons: Michael Palomino MD Relevant Problems No relevant active problems Past Medical History: No past medical history on file. Past Surgical History: Past Surgical History: No date: SURGICAL IMPLANT (HISTORICAL) Comment: bith 2 Social History: TOBACCO: reports that she has never smoked. She has been exposed to tobacco smoke. She has never used smokeless tobacco. ETOH: reports current alcohol use. Social History Substance and Sexual Activity Drug Use Not Currently Family History: Family History Problem Relation Name Age of Onset ? Diabetes Father ? Cancer Father ? Diabetes Mother ? Heart disease Mother ? Diabetes Mother's Sister ? Heart disease Mother's Sister ? Diabetes Mother's Brother ? Heart disease Mother's Brother Screening: Hysterectomy Clinical information reviewed: Physical Exam Airway Mallampati: II TM distance: >3 FB Neck ROM: full Mouth Open: normalendotracheal tube not in place Cardiovascular Dental (+) edentulous Comments: Did not go through PAT Pulmonary Abdominal Anesthesia Plan patient is NPO appropriate Any family history or previous problems with anesthesia no ASA 2 general Any family history or previous problems with anesthesia no The patient is not a current smoker. Anesthetic plan and risks discussed with patient. ERAS Type Short ERAS SHILPA Screening Labs: Lab Results Component Value Date WBC 0-5 04/15/2023 Lab Results Component Value Date GLUCOSE NEGATIVE 04/15/2023 No echocardiogram results found for the past 14 days No results found for this or any previous visit. [facility] 04-15-2023 History of Present illness Narrative HPI Chief Complaint Patient presents with New Patient Urine Leakage 58 y.o. female Urinary complaints started few years ago. Getting worse now. Tried meds before (oxybutynin) with no improvement. Also tried Kegel's with no results. Also feel as if something is falling out of the vagina; ball/bulge in thevagina. Getting worse during afternoon/evening. Pt does not manipulate to void or have BM. Stress incontinence: yes. Severe. It bothers her a lot and significantly impacts her quality of life. Urgency: yes, sometimes Urge incontinence: yes, sometimes Frequency: yes, urinates every 4-5 x during the day Nocturia: yes, 4 and 5 x per night Enuresis: No Pad use: yes, many Feels like she empties her bladder well. No recurrent UTI. No macroscopic hematuria. Sexual Activity: No; Dyspareunia: N/A Constipation: No Other bowel problems: None. Past Surgical History: Procedure Laterality Date SURGICAL IMPLANT (HISTORICAL) bith 2 History reviewed. No pertinent past medical history. Current Outpatient Medications Medication Sig Dispense Refill fluticasone-salmeterol (AirDuo RespiClick) 232-14 MCG/ACT inhaler ibuprofen 800 MG tablet oxybutynin XL (Ditropan-XL) 15 MG 24 hr tablet Take 15 mg by mouth daily. traMADol (Ultram) 50 MG tablet varenicline (Chantix) 1 MG tablet TAKE 1 TABLET BY MOUTH TWICE DAILY starting after completing dose .5mg pack No current facility-administered medications for this visit. OB History 2 Para Term AB 2 Living SAB IAB Ectopic Multiple Live Births 2 No Known Allergies Ht 5' 6 (1.676 m) Wt 214 lb (97.1 kg) LMP (LMP Unknown) No BMI 34.54 kg/m Physical Exam Vulva: atrophic Vagina: atrophic Cervix: atrophic Aa -1, Ba -1, C -6 gh 4, pb 3, tvl9 Ap -1, Bp -1, D 6 Levators: 2/5 Urethra: Hypermobility: Yes Incontinence: Supine: yes, severe Bimanual: uterus AV, mobile, nontender, not enlarged, no adnexal masses felt Rectal: good tone Residual volume, bladder us: ml Assessment: Diagnosis Plan 1. Stress incontinence (female) (male) Ambulatory referral to Urogynecology 2. Overactive bladder 3. Midline cystocele I spent a total time of 45 minutes caring for this patient today. The patient was seen and examined. . I have also spent time communicating results to the patient, counseling/educating the patient, documenting in the medical record and ordering the necessary procedures. I discussed the diagnosis and importance of compliance with the treatment plan. Stress urinary incontinence. Different treatment options were discussed with the patient in detail. Patient was taught Kegels exercises. Referral to pelvic floor therapy for biofeedback/electrostimulation was offered, but patient declined. Also, pessary and surgical treatment were discussed. She declined pessary fitting and wanted to proceed with surgery . A suburethral sling is recommended. I discussed the use of natural and synthetic material for her sling. I also discussed harvesting the patient's own tissue. The patient would prefer a synthetic material. The risk of mesh erosion was explained in detail. The patient is a candidate for a suburethral sling using synthetic material, and cystoscopy. The patient understands the purpose of the surgery. She understands the risks, which include but are not limited to pain (acute postoperative and/for chronic), bleeding, infection, injury to adjacent organs (including the bladder, bowel, urethra, ureters, blood vessels and nerves), dyspareunia, and fistula formation. She is aware of the possibility of additional surgery and/or re-operation to address any complications. She is aware of the risks of anesthesia, blood clots, and possible need for transfusion of blood products. She is aware of the possibility of urinary retention and the need for catheterization post-operatively. She understands that no operation can provide a 100% guarantee, and that recurrence of her stress incontinence is possible in the future. She understands that this operation is designed to treat stress incontinence specifically, and does not address detrusor instability, urge incontinence or other symptoms of overactive bladder. The patient was made aware of conservative options for treatment and has either tried or declined them. The patient demonstrated her understanding of the above and asked appropriate questions. All her questions were answered and informed consent was obtained. Also, pt with stage 2 anterior vaginal prolapse. Observation and different treatment options were discussed with the pt in detail. Pt would like to proceed with the surgical treatment at the same time with surgery for LUKE. She is a candidate for anterior repair. She understands the risks, which include but are not limited to pain (acute postoperative and/for chronic), bleeding, infection, injury to adjacent organs (including the bladder, bowel, urethra, ureters, blood vessels and nerves), dyspareunia, and fistula formation. She is aware of the possibility of additional surgery and/or re-operation to address any complications. She is aware of the risks of anesthesia, blood clots, and possible need for transfusion of blood products. She is aware of the possibility of urinary retention and the need for catheterization post-operatively. She understands that no operation can provide a 100% guarantee, and that recurrence of her prolapse is possible in the future. She understands that this operation is designed to treat prolapse specifically, and does not address stress urinary incontinence, detrusor instability, urge incontinence or other symptoms of overactive bladder. The patient was made aware of conservative options for treatment and has either tried or declined them. The patient demonstrated her understanding of the above and asked appropriate questions. All her questions were answered and informed consent was obtained. Refractory overactive bladder. Patient failed behavioral modifications (fluid restriction, bladder diet, bladder training, urge suppression techniques), and Kegels exercises. Also patient failed medications. Other treatment options were reviewed with the patient. Botox intradetrusor injections, and neuromodulation (PTNS and sacral neuromodulation) were discussed in detail. After all her questions were answered, the patient decided to proceed with Botox intradetrusor injections. Risks, benefits, and alternatives of the Botox treatment were discussed with the patient. Risks of the procedure include, but not limited to: urinary retention in about 6% of patients (12% in patients with diabetes) that might require catheterization up to 4 times a day, mostly for a few weeks but sometimes much longer, until the botox will wear off (7 to 8 months); hematuria; urinary tract infection; other side effects that may occur if the drug spreads to other parts of the body and may include muscle weakness, which can affect swallowing, speech or breathing. She is aware of the risks of anesthesia, blood clots, and possible need for transfusion of blood products. She understands that no operation can provide a 100% guarantee, and that recurrence of her OAB is possible in the future. She understands that this operation is designed to treat OAB specifically, and does not address LUKE. The patient was made aware of conservative options for treatment and has either tried or declined them. The patient demonstrated her understanding of the above and asked appropriate questions. All her questions were answered and informed consent was obtained. Plan: Synthetic midurethral sling, anterior repair, Botox intra detrusor injections, and cystoscopy. documented in [facility] Evaluation note No assessment inform ation available [facility] Work Phone: Evaluation note Diagnosis Stress incontinence (female) (male)- Primary Overactive bladder Hypertonicity of bladder Midline cystocele Cystocele, midline Urgency incontinence Urge incontinence Stress incontinence (female) (male) [facility] Postoperative pain- Primary Other acute postoperative pain [facility] Diagnosis Stress incontinence (female) (male)- Primary [facility] Diagnosis Postop check- Primary Follow-up examination, following unspecified surgery [facility] Consultation (Routine) - Closed Specialty Diagnoses / Procedures Referred By Jerry buchanan Referred To Contact Urogynecology Diagnoses Stress incontinence (female) (male) Procedures CT OFFICE/OUTPATIENT [facility] 60-74 MINUTES Jossie Brar MD [address] [place] [address] [address] [place] [address] [facility] [address] [facility] [facility] [address] [place] [address] Referral ID Status Reason Start Date Expiration Date V isits Requested Visits Authorized [id number] Closed Specialty Services Required 02/01/2023 02/01/2024 1 1 [facility] Chief Complaint and Reason for Visit Chief Complaint SCREENING Chief Complaint SCREENING HX OF TOBACCO USE Advance Directives No Advanced Directives Records Found Advance Directive Response Recorded Date/ Time Living Will No August 23 10:14am Power of Dehydrator No August 23, 2019 10:14am Latest Code Status on File Code Status Date Activated Date Inactivated Comments Full Code 04/19/2023 11:13 AM 04/19/2023 6:39 PM Latest Code Status on File Code Status Date Activated Date Inactivated Comments Full Code 04/19/2023 11:13 AM 04/19/2023 6:39 PM Advance Directive Response Recorded Date/ Time Living Will No August 23 9:14am Power of Dehydrator No August 23, 2019 9:14am Summary Purpose Family History No Family History Records FoundNo Family History Records Found Additional Source Comments Care Teams (unrecognized sec tion and content) Team Status: Active Member Role Status Dates Dr. Ted Gore MD Primary Care Provider Active Team Status: Inactive Member Role Status Dates Dr. Ted Gore MD Primary Care Pr ovider, Attending Provider, Referring Provider Active Team Status: Inactive Member Role Status Dates Dr. Ted Gore MD Primary Care Provider Active Dr. 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 [address] [place] [phone] PCP - General 04/15/23 Necktie Centralizing Machine Operator Relationship Specialty Start Date End Date [facility] [address] [facility] [address] [place] [phone] PCP - General 04/15/23 Necktie Centralizing Machine Operator Relationship Specialty Start Date End Date [facility] [address] [place] [address] PCP - General 04/15/23 Team Status: Inactive Member Role Status Dates Dr. Ted Gore MD Primary Care Provider, Attend ing Provider Active Goals (unrecognized section and content) Goals may be documented in a n alternate sectionGoals may be documented in an alternate sectionGoals may be documented in an alternate sectionGoals may be documented in an alternate section Reason for Visit (unrecogniz ed section and content) Reason Comments New Patient Urine Leakage Specialty Diagnoses / Procedures Referred By Contac t Referred To Contact Urogynecology Diagnoses Stress incontinence (female) (male) Procedures CT OFFICE/OUTPATIENT [facility] MDM 60-74 MINUTES Jossie Brar MD [address] [place] [address] [address] [place] [address] [facility] Urogyn [address] [place] [address] Referral ID Status Reason Start Date Expiration Date V isits Requested Visits Authorized [id number] Closed Specialty Services Required 02/01/2023 02/01/2024 1 1 Specialty Diagnoses / Procedures Referred By Jerry buchanan Referred To Contact Diagnoses Stress incontinence (female) (male) Stress incontinence (female) (male) [N39.3] Procedures CT SLING OPERATION STRESS INCONTINENCE CT ANTERIOR COLPORRAPHY RPR CYSTOCELE W/CYSTO CT CYSTOURETHROSCOPY INJ CHEMODENERVATION BLADDER mid urethral sling anterior repair, botox injection 100 units ANTERIOR COLPORRHAPHY REPAIR CYSTOCELE (ANTERIOR REPAIR) BOTOX INJECTION Michael Palomino MD [address] [facility], [address] [place] [address] [facility] [address] [place] [address] Referral ID Status Reason Start Date Expiration Date Visits Re quested Visits Authorized [id number] 1 1 Reason Comments Post-op 6 week Scheduled Active and Recently Administ ered Medications (unrecognized section and content) Medication Order 04/17/2023 04/18/2023 04/19/2023 acetaminophen (Tylenol) tablet 1,000 mg (COMPLETED) 1,000 mg, Oral, Once, On Wed04/19/23 at 1115, For 1 dose, Preprocedure, Maximum dose of acetaminophen is 4000 mg from all sources in 24 hours. Do not administer if patient has taken tylenol <4 hours earlier. Do not give if contraindicated ie. patient has active liver disease or cirrhosis. 1157 (Given - Provid er: Gudelia Calix RN) ceFAZolin in dextrose 4% (Ancef) IVPB 2,000 mg (COMPLETED) 2,000 mg, IntraVENous, Administer over 30 Minutes, Workforce Manager to O.R., On Wed04/19/23 at 1115, For 1 dose, Preprocedure, Administer within 1 hour prior to incision. premix bag, Suspected Indication (Select all that apply): Surgical Prophylaxis 1418 (Given - Provid er: Karine Mendoza RN)1518 (Anesthesia Volume Adjustment - Provider: Nohemy Tavarez APRN - [employer]) famotidine (Pepcid) tablet 20 mg (COMPLETED) 20 mg, Oral, Once, On Wed04/19/23 at 1115, For 1 dose, Preprocedure 1156 (Given - Provid er: Gudelia Calix RN) gabapentin (Neurontin) capsule 100 mg (COMPLETED) 100 mg, Oral, Once, On Wed04/19/23 at 1115, For 1 dose, Preprocedure, For Age >69 or Low GFR. 1157 (Given - Provid er: Gudelia Calix RN) sodium chloride 0.9% (NS) flush 10 mL 10 mL, IntraVENous, Every 12 hours scheduled (2 times per day), First dose on Wed04/19/23 at 1115, Preprocedure 1115 (Canceled Entry - Provider: Automatic Discharge Provider - Comment: Automatically canceled at discontinue of medication order) Continuous Medication Order 04/17/2023 04/18/2023 04/19/2023 lactated Ringer's infusion 50 mL/hr, IntraVENous, Continuous, Starting on Wed04/19/23 at 1115, Preprocedure, Upon admission to sameday - please start iv if patient does not have iv access. Use 500ml NS for patients on dialysis. 1157 (New Bag - Prov ider: Gudelia Calix RN)1413 (Continued by Anesthesia - Provider: Karine Mendoza RN)1508 (Stopped - Provider: Nohemy Tavarez APRN - [employer] SALTER) PRN Medication Order 04/17/2023 04/18/2023 04/19/2023 ALPRAZolam (Xanax) disintegrating tablet 0.25 mg (COMPLETED) 0.25 mg, Oral, PRN, anxiety, Starting on Wed04/19/23 at 1113, For 1 dose, Preprocedure, Using dry hands, place tablet on top of tongue and allow to disintegrate. Administration with water is not necessary. 1156 (Given - Provid er: Gudelia Calix RN) lidocaine-EPINEPHrine (Xylocaine W/EPI) 1 %-1:171978 injection (CANCELED) As needed, Starting on Wed04/19/23 at 1445, Intraprocedure 1445 (Given - Provid er: Michael Palomino MD) onabotulinumtoxinA (Botox) injection (CANCELED) As needed, Starting on Wed04/19/23 at 1454, Intraprocedure 1501 (Given - Provid er: Michael Palomino MD - Comment: MIXED WITH 10 ML PF 0.9% SODIUM CHLORIDE) oxyCODONE (Roxicodone) immediate release tablet 10 mg (COMPLETED)(Linked Group 1) 10 mg, Oral, PRN, severe pain (7-10), Starting on Wed04/19/23 at 1527, For 1 dose, Recovery (only), PHASE II 1555 (Given - Provid er: Colette Hylton RN) sodium chloride 0.9 % irrigation solution (CANCELED) As needed, Starting on Wed04/19/23 at 1438, Intraprocedure 1438 (Given - Provid er: Michael Palomino MD) sodium chloride 0.9 % irrigation solution (CANCELED) As needed, Starting on Wed04/19/23 at 1439, Intraprocedure 1439 (Given - Provid er: Michael Palomino MD) sodium chloride 0.9% (NS) flush 10 mL 10 mL, IntraVENous, PRN, line care, Starting on Wed04/19/23 at 1113, Preprocedure, After every IV line use sodium chloride 0.9% (NS) flush 5-40 mL 5-40 mL, IntraVENous, PRN, line care, After every IV line use, Starting on Wed04/19/23 at 1113, Preprocedure, For Line Patency: Peripheral IV = 5 mL; Midline or Central Line = 10 mL/lumen. If following IV push medication, administer flush at same rate as the IV push. Flush volume is determined by type of infusion therapy being given. For non-viscous solutions use: Peripheral IV = 5 mL Midline or Central Line = 10 mL/lumen For viscous solutions (i.e. blood components, parenteral nutrition, contrast media, or after obtaining blood sample) use: Peripheral IV = 10 mL Midline or Central Line = 20 mL/lumen sterile water irrigation solution (CANCELED) As needed, Starting on Wed04/19/23 at 1438, Intraprocedure 1438 (Given - Provid er: Michael Palomino MD - Comment: OPENED ON BACK TABLE) Linked Groups Order Group 1: oxyCODONE (Roxicodone) immediate release tablet 5 mg (COMPLETED) 5 mg, Oral, PRN, moderate pain (4-6), Starting on Wed04/19/23 at 1527, For 1 dose, Recovery (only), PHASE II Or oxyCODONE (Roxicodone) immediate release tablet 10 mg (COMPLETED)Jump to med 10 mg, Oral, PRN, severe pain (7-10), Starting on Wed04/19/23 at 1527, For 1 dose, Recovery (only), PHASE II INFORMATION SOURCE (unrecogn ized section and content) DATE CREATED AUTHOR 09/23/2023 [facility] DATE CREATED AUTHOR AUTHOR'S ORGANIZ ATION 05/04/2024 [facility] FOR RECORDS PERTAINING TO PATIENTS WHO ARE OR HAVE BEEN ENROLLED IN A CHEMICAL DEPENDENCY/SUBSTANCEABUSE PROGRAM, SOME INFORMATION MAY BE OMITTED. This clinical summary was aggregated from multiple sources. Caution should be exercised in using it in the provision of clinical care. This summary normalizes information from multiple sources, and as a consequence, information in this document may materially change the coding, format and clinical context of patient data. In addition, data may be omitted in some cases. CLINICAL DECISIONS SHOULD BE BASED ON THE PRIMARY CLINICAL RECORDS. [facility] [employer] [facility]. provides no warranty or guarantee of the accuracy or completeness of information in this document.
== END | disposition home or self-care (01) ==
PROVIDERS: PCP Family Medicine; Referring Provider Family Medicine; Visit Provider Family Medicine
DX: M47.819 Spondylosis without myelopathy or radiculopathy, site unspecified (principal); E66.9 Obesity, unspecified
CPT/HCPCS: 36415; 72100; 80053; 80061; 81002; 85025

== ENCOUNTER 2025-01-10 12:52 | Outpatient (RCR) | payer OTHER, SELFPAY ==
--- NOTE | 2025-01-10 14:24 | HP.PTEVAL_ITS ---
Patient's Visit Information Visit Information Visit Information: HARIS LEE is a 59 year old F referred to Physical Therapy by Dr. Ted Gore MD with a diagnosis of DDD LUMBAR SPINE. Date of Evaluation: 01/10/25 Physical Therapist: Robert Tolliver, PT, Cert MDT, OCS Visit Plan Frequency: 2x /Week Duration: 4 Weeks Plan: PT INTERVENTIONS DLS,POSTURAL EX'S ,CHRIS EX'S ,ACTIVITY MODIFICATION AND MODALITIES Subjective Subjective: This 55 y/o female presents to physical therapy with lumbar pain. Patient has had lumbar pain many years ,which has [address] melendez x-rays showed Mild multilevel degenerative disc disease and rotary scoliosis convex right.Patient has scolisis since 12 years old. .Patient has had pain insidious onset for pain. Patient aggravating factors standing 15min ,walking 30 mins ,lifting occasionally sitting. Driving < 1 1/2 . Alleviating rest. Right SI /LS Groin to thigh. Takes inbuprofron. Coughing/sneezing-. Bowel/bladder - . Patient affects sleeping. Pain affects job demands. No trauma, No tx recently. Patient condition affects QOL and function.. 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 Pain Left Back: Pain Intensity (Out of 10): 0 Pain Intensity Range: 10 Right Back: Pain Intensity (Out of 10): 4 Objective Objective: POSTURE: slight asymmetries pelvis ,ASIS ,PSIS ,LEG LENGTH ( scoliosis) GAIT: reciprocal pattern NEURO: c/o paresthesia/tingling thigh PALAPTION : mild tender right SI FLEXABILITY: hamstrings WFL MMT: quads/hams/hip 4/5 ,ankle LUMBAR ROM: flexion WFL ,extension WFL ,side glides WFL Special Tests L/S Slump test left side: Negative L/S Slump test right side: Negative L/S Left Straight Leg Raise: Negative L/S Right Straight Leg Raise: Negative Lumbar Standing: Flexion - Mechanical Response: No effect Lumbar Standing: Flexion - Symptoms During Testing: No effect Lumbar Standing: Flexion - Symptoms After Testing: No effect Lumbar Standing: Extension - Mechanical Response: No effect Lumbar Standing: Extension - Symptoms During Testing: No effect Lumbar Standing: Extension - Symptoms After Testing: No effect Lumbar Standing: Right Side Glides - Mechanical Response: No effect Lumbar Standing: Right Side [place] - Symptoms During Testing: No effect Lumbar Standing: Right Side [place] - Symptoms After Testing: No effect Lumbar Standing: Left Side [place] - Mechanical Response: No effect Lumbar Standing: Left Side [place] - Symptoms During Testing: Increases Lumbar Standing: Left Side [place] - Symptoms After Testing: Worse R Hip Scour: Negative R Hip Quadrant - Intraarticular Pathology: Negative Balance/Special Test Scores Oswestry Low Back Score: 22 Goals Goal 1:: Patient to be I with HEP for back Goal Time Frame: 4-6 Weeks Goal 2:: Patient to improve lumbar ROM function of recovery for job demands Goal Time Frame: 4-6 Weeks Goal 3:: Patient to improve back oswestry by 5 points to improve function and QOL Goal Time Frame: 4-6 Weeks Goal 4:: Patient to demonstrate 50% improvement with less pain and improved function Goal Time Frame: 4-6 Weeks Rehabilitation Potential Physical Therapy Diagnosis: This patient has possible derangement and weak postural muscles with pain with positioning and motion testing worse standing and walking thus benefit from skilled PT Rehabilitation Potential: Good Anticipated Interventions Patient/Client Instruction: Educate patient on: Condition and Plan of Care For the Purpose of:: To decrease pain, To increase ROM, To improve muscle performance and motor function, To increase tolerance to activity/condition/position, To improve ability of physical actions for home/community/work/leisure, To improve health of tissue, To decrease soft tissue restriction, To increase flexibility/ROM, To prevent re-injury and To improve tolerance to ADL's Therapeutic Exercise to Include: Strength training, Postural training, Flexibilty training, Dynamic Lumbar Stabilization and Chris Exercises For the Purpose of:: To decrease pain, To increase ROM, To improve muscle performance and motor function, To increase tolerance to activity/condition/position, To improve ability of physical actions for home/community/work/leisure, To improve health of tissue, To decrease soft tissue restriction, To increase flexibility/ROM and To reduce risk of recurrence TENS: Yes IF ES: Yes Cryotherapy (ice pack, ice massage): Yes Thermo therapy (hot pack): Yes Ultrasound (thermal/non thermal): Yes For the Purpose of:: To decrease pain, To increase ROM, To improve nutrient delivery to tissue, To increase oxygenation perfusion, To improve health of tissue and To decrease soft tissue restriction Text: Thank you for the opportunity to evaluate your patient. For Medicare and Medicare HMO plans, please review the plan of care and approve it. It will need to be FAXED BACK to us at [phone] for Medicare purposes. For Medicare only, by signing this I certify the plan of care. Please let me know if there are questions or concerns regarding this plan of care. Physician Diogenes purcell: Date:
--- NOTE | 2025-02-27 12:40 | HP.PT.NRP ---
Patient Information Patient Information: HARIS LEE was seen in my office for initial evaluation on 01/10/25. The following Plan of Care was established for this patient: POC Established Initial Frequency: 2x /Week Initial Duration: 4 Weeks Anticipated Interventions Patient/Client Instruction: Educate patient on: Condition and Plan of Care For the Purpose of:: To decrease pain, To increase ROM, To improve muscle performance and motor function, To increase tolerance to activity/condition/position, To improve ability of physical actions for home/community/work/leisure, To improve health of tissue, To decrease soft tissue restriction, To increase flexibility/ROM, To prevent re-injury and To improve tolerance to ADL's Therapeutic Exercise to Include: Strength training, Postural training, Flexibilty training, Dynamic Lumbar Stabilization and Toni Exercises For the Purpose of:: To decrease pain, To increase ROM, To improve muscle performance and motor function, To increase tolerance to activity/condition/position, To improve ability of physical actions for home/community/work/leisure, To improve health of tissue, To decrease soft tissue restriction, To increase flexibility/ROM and To reduce risk of recurrence TENS: Yes IF ES: Yes Cryotherapy (ice pack, ice massage): Yes Thermo therapy (hot pack): Yes Ultrasound (thermal/non thermal): Yes For the Purpose of:: To decrease pain, To increase ROM, To improve nutrient delivery to tissue, To increase oxygenation perfusion, To improve health of tissue and To decrease soft tissue restriction Last Seen Last Seen: This patient was last seen in our office . Pertinent comments regarding their Physical therapy will appear below: Patient seen for lumbar pain for PT initial evaluation and D/C to HEP At this point I will be discontinuing this patient from physical therapy. I would be happy to see this patient again in the future if found appropriate by the physician. Thank you! Robert Tolliver, PT, Cert MDT, OCS Balance/Gait/Functional tests Balance/Special Test Scores Oswestry Low Back Score: 22
== END 2025-01-10 19:00 | disposition home or self-care (01) ==
LOC: PT 12:52
PROVIDERS: PCP Family Medicine; Referring Provider Family Medicine; Visit Provider Family Medicine
DX: M51.9 Unspecified thoracic, thoracolumbar and lumbosacral intervertebral disc disorder (principal)
CPT/HCPCS: 97110; 97162

== ENCOUNTER → 2025-05-23 | Outpatient (CLI) | payer OTHER, SELFPAY ==
--- NOTE | 2025-05-23 09:31 | RAD_ITS ---
PROCEDURE: RAD/Lumbar Spine 2 or 3 Views
--- NOTE | 2025-05-23 09:31 | RAD_ITS ---
PROCEDURE: RAD/Thoracic Spine 2 Views
[2025-05-23 12:37] LABS: Hematocrit 44.8 % (37-47); Hemoglobin 14.5 g/dL (12.0-15.0); Immature Granulocytes Count 0.020 X10^3/uL (0.0-0.0); Mean Corp Hgb Conc 32.4 g/dL (32-36); Mean Corpuscular Volume 96.1 fL (81-99); Mean Platelet Vol. 11.1 fl (6.2-12.0); NRBC Flagged by Analyzer 0 % (0-5); Platelet Count 345 K/mm3 (150-450); RBC Distribution Width CV 13.9 % (11.6-14.6); RBC Distribution Width SD 49.1 fl (35.1-43.9); Red Blood Count 4.66 M/mm3 (4.2-5.4); White Blood Count 8.3 K/mm3 (4.4-11.0)
[2025-05-23 13:11] LABS: AST(SGOT) 22 U/L (<=31); Alanine Aminotransfer ALT/SGPT 23 U/L (<=34); Albumin, Serum 4.0 g/dL (3.5-5.0); Alkaline Phosphatase 74 U/L (35-104); Anion Gap 15 (5-15); BUN 29 mg/dL (4-19); BUN/Creat Ratio 38.8 RATIO (10-20); Calcium,Total 9.1 mg/dL (7.6-11.0); Carbon Dioxide 21.6 mmol/L (21.0-32.0); Chloride 103 mmol/L (98-108); Globulin 2.8 g/dL (2.2-4.2); Glucose 82 mg/dL (70-99); Potassium 3.9 mmol/L (3.3-5.1); Vitamin D,25 Hydroxy 26.1 ng/mL (30-100)
== END | disposition home or self-care (01) ==
LOC: MTLAB 09:31
PROVIDERS: PCP Family Medicine; Referring Provider Family Medicine; Visit Provider Family Medicine
DX: M54.9 Dorsalgia, unspecified (principal); R53.83 Other fatigue
CPT/HCPCS: 36415; 72070; 72100; 80053; 82306; 84439; 84443; 85025